=== PATIENT | male | born 1930 | race Caucasian/White ===

== ENCOUNTER 2017-04-18 16:16 | Emergency (ER) | payer MEDICARE ==
[~2017-04-18] VITALS: Ht 180.3 cm; Wt 77.0 kg
[~2017-04-18 16:16] MED LIST: ACID1TAB7 PO; AMLO2.5T PO; AMLO5TAB2 PO; AMOX250S6 PO; CEFD300C37 PO; DOXY100T PO; HYDR10TA4 PO; LISI-167 PO; MIRT15TA6 PO; OMEP40CA6 PO; SIME80TA14 PO; TRAM50TA2 PO
[2017-04-18] MEDS ORDERED: ONDANSETRON 2MG/ML, 2ML ONE (16:55)
[2017-04-18] MEDS ORDERED: MECLIZINE CHEWABLE 25 MG TAB ONE ×2 (16:55→17:10)
[2017-04-18] MEDS ORDERED: ONDANSETRON 2MG/ML, 2ML IVPush ONE (17:00)
[2017-04-18] MEDS ORDERED: SODIUM CHLORIDE 0.9% 1,000ML IVBOLUS ONE (17:00)
[2017-04-18] MEDS ORDERED: MECLIZINE CHEWABLE 25 MG TAB PO ONE (17:00)
[2017-04-18 17:32] LABS: HEMATOCRIT 37.3 % (39.2-51.8); HEMOGLOBIN 12.3 g/dL (13.7-18.0); WHITE BLOOD COUNT 10.1 x10^3/uL (3.4-10)
[2017-04-18 17:44] LABS: ASPARTATE AMINO TRANSFERASE 16 U/L (15-37); BLOOD UREA NITROGEN 9 mg/dL (7-18)
[2017-04-18 20:32] VITALS: BP 168/54
== END 2017-04-18 20:34 | disposition home or self-care (01) ==
LOC: ED 20:28
DX: H53.2 Diplopia (principal); R23.2 Flushing; K21.9 Gastro-esophageal reflux disease without esophagitis; I10 Essential (primary) hypertension; Z90.49 Acquired absence of other specified parts of digestive tract
CPT/HCPCS: 36415; 70450; 70551; 80053; 81003; 85025; 93005; 96361; 96374; 99285; J2405; J7030

== ENCOUNTER 2017-04-23 17:26 | Inpatient (IN) | payer MEDICARE ==
[~2017-04-23] VITALS: Ht 177.8 cm; Wt 69.7 kg
[2017-04-23] MEDS ORDERED: SODIUM CHLORIDE 0.9% 1,000 ML IV ONE (18:23)
[2017-04-23] MEDS ORDERED: MECLIZINE CHEWABLE 25 MG TAB PO ONE (18:30)
[2017-04-23] MEDS ORDERED: SODIUM CHLORIDE FLUSH 10ML SYR IVF ONE (18:30)
[2017-04-23] MEDS ORDERED: MECLIZINE CHEWABLE 25 MG TAB ONE (18:58)
[2017-04-23 19:04] LABS: HEMOGLOBIN 12.3 g/dL (13.7-18.0); WHITE BLOOD COUNT 10.7 x10^3/uL (3.4-10)
[2017-04-23 19:17] LABS: BLOOD UREA NITROGEN 8 mg/dL (7-18)
[2017-04-23 19:20] LABS: PATH.CAST-FLAG NOT PRESENT; SPERM-FLAG NOT PRESENT; SRC-FLAG NOT PRESENT; XTAL-FLAG NOT PRESENT; YLC-FLAG NOT PRESENT
[2017-04-23 19:28] LABS: IS PT STATUS REG ER OR PRE ER? YES
[2017-04-23] MEDS ORDERED: DOCUSATE 100 MG CAPSULE PO PRN (21:00)
[2017-04-23] MEDS ORDERED: ONDANSETRON 2MG/ML, 2ML IVPush PRN (21:00)
[2017-04-23] MEDS ORDERED: ENALAPRILAT 1.25 MG/ML, 2ML IVPush PRN (21:00)
[2017-04-23] MEDS ORDERED: LABETALOL 5MG/ML, 20ML IVPush PRN (21:00)
[2017-04-23] MEDS ORDERED: hydrOXyzine 10MG TABLET PO PRN (21:00)
[2017-04-23] MEDS ORDERED: ACETAMINOPHEN 325 MG TABLET PO PRN (21:00)
[2017-04-23] MEDS ORDERED: FAMOTIDINE 20 MG TABLET ONE (21:21)
[2017-04-23] MEDS: FAMOTIDINE 20 MG TABLET PO SCH (21:23)
[2017-04-23] MEDS ORDERED: AMLODIPINE 5 MG TABLET PO ONE (21:30)
[2017-04-23 23:04] VITALS: BP 166/70
[2017-04-23] MEDS: TEMAZEPAM 15 MG CAPSULE PO PRN (23:22)
[2017-04-24 02:27] VITALS: BP 128/68
[2017-04-24 06:12] LABS: HEMOGLOBIN 12.5 g/dL (13.7-18.0); WHITE BLOOD COUNT 8.4 x10^3/uL (3.4-10)
[2017-04-24 06:20] LABS: ASPARTATE AMINO TRANSFERASE 14 U/L (15-37); BLOOD UREA NITROGEN 8 mg/dL (7-18)
[2017-04-24 07:03] VITALS: BP 177/68
[2017-04-24 07:20] VITALS: BP 165/69
[2017-04-24] MEDS: FAMOTIDINE 20 MG TABLET PO SCH ×2 (09:22→21:03)
[2017-04-24] MEDS: AMLODIPINE 5 MG TABLET PO SCH (09:22)
[2017-04-24] MEDS ORDERED: MECLIZINE 12.5 MG TABLET PO PRN (10:30)
[2017-04-24 12:32] VITALS: BP 149/69
[2017-04-24 14:35] VITALS: BP 152/65
[2017-04-24 20:02] VITALS: BP 159/66
[2017-04-24] MEDS: TEMAZEPAM 15 MG CAPSULE PO PRN (21:03)
[2017-04-25 03:00] VITALS: BP 148/70
[2017-04-25 05:35] LABS: BLOOD UREA NITROGEN 9 mg/dL (7-18)
[2017-04-25 09:03] VITALS: BP 139/70
[2017-04-25] MEDS: AMLODIPINE 5 MG TABLET PO SCH (09:06)
[2017-04-25] MEDS: FAMOTIDINE 20 MG TABLET PO SCH (09:06)
[2017-04-25] MEDS ORDERED: MECL12.52 PO (11:08)
[2017-04-25] MEDS ORDERED: AMLO5TAB2 PO (11:08)
[2017-04-25 11:59] VITALS: BP 147/85
== END 2017-04-25 12:40 | disposition home or self-care (01) | DRG 641 ==
LOC: ED 20:36 → EDIP 21:00 → 4NOR 22:40 → DCLOUNGE 04-25 12:20
PROVIDERS: ADMIT Internal Medicine; ATTEND Internal Medicine
DX: E87.1 Hypo-osmolality and hyponatremia (principal); I10 Essential (primary) hypertension; J98.11 Atelectasis; R42 Dizziness and giddiness; H93.19 Tinnitus, unspecified ear; F32.9 Major depressive disorder, single episode, unspecified; G47.00 Insomnia, unspecified; F41.9 Anxiety disorder, unspecified; K21.9 Gastro-esophageal reflux disease without esophagitis; Z87.01 Personal history of pneumonia (recurrent); Z90.49 Acquired absence of other specified parts of digestive tract
CPT/HCPCS: 36415; 70450; 71010; 80048; 80053; 81001; 82040; 83735; 83930; 83935; 84100; 84300; 84443; 84484; 85025; 93005; 99285; J7030

== ENCOUNTER 2017-07-31 06:39 | Emergency (ER) | payer MEDICARE ==
[~2017-07-31] VITALS: Ht 177.8 cm; Wt 76.2 kg
[~2017-07-31 06:39] MED LIST changes: +MECL12.52 PO
[2017-07-31] MEDS ORDERED: SODIUM CHLORIDE 0.9% 1,000 ML IV ONE (07:13)
[2017-07-31] MEDS ORDERED: ONDANSETRON 2MG/ML, 2ML IVPush ONE (07:30)
[2017-07-31] MEDS ORDERED: SODIUM CHLORIDE FLUSH 10ML SYR IVF ONE (07:30)
[2017-07-31] MEDS ORDERED: SODIUM CHLORIDE 0.9% 1,000ML IVBOLUS ONE (07:30)
[2017-07-31 07:36] LABS: HEMATOCRIT 36.4 % (39.2-51.8); HEMOGLOBIN 12.2 g/dL (13.7-18.0)
[2017-07-31] MEDS ORDERED: ONDANSETRON 2MG/ML, 2ML ONE (07:51)
[2017-07-31 07:58] LABS: ASPARTATE AMINO TRANSFERASE 20 U/L (15-37); BLOOD UREA NITROGEN 10 mg/dL (7-18)
[2017-07-31 09:38] LABS: PATH.CAST-FLAG NOT PRESENT; SPERM-FLAG NOT PRESENT; SRC-FLAG NOT PRESENT; XTAL-FLAG NOT PRESENT; YLC-FLAG NOT PRESENT
[2017-07-31] MEDS ORDERED: OMNIPAQUE 350 MG/ML, 100ML BOTTLE ONE (12:11)
[2017-07-31 13:13] VITALS: BP 134/60
== END 2017-07-31 13:15 | disposition home or self-care (01) ==
LOC: ED 10:19
DX: R19.7 Diarrhea, unspecified (principal); R11.2 Nausea with vomiting, unspecified; R10.9 Unspecified abdominal pain; K21.9 Gastro-esophageal reflux disease without esophagitis; I10 Essential (primary) hypertension; Z90.49 Acquired absence of other specified parts of digestive tract
CPT/HCPCS: 36415; 74177; 80053; 81001; 83605; 85025; 87324; 89055; 96361; 96374; 99285; J2405; J7030; Q9967

== ENCOUNTER 2019-07-06 13:04 | Inpatient (IN) | payer MEDICARE ==
[~2019-07-06] VITALS: Ht 177.8 cm; Wt 75.1 kg
[~2019-07-06 13:04] MED LIST changes: +AMLO-150 PO; -AMLO2.5T PO; +AMLO2.5T5 PO; -AMLO5TAB2 PO; +LISINOPRIL; +LOPE2CAP PO; -MIRT15TA6 PO; +MIRT15TA94 PO; +OMEP40CA42 PO; -OMEP40CA6 PO
--- NOTE | 2019-07-06 13:15 | NUR ---
BIB [facility]. C/O CP ALL OVER CHEST WALL, NON RADIATING. NEW DX OF ANGINA. STATES PAIN FEELS DIFFERENT. GIVEN 324 ASA, 100 FENT, 4 ZOFRAN BY [facility]. PT CONNECTED TO MONITORING. CALL LIGHT IN REACH. MD AT BEDSIDE, AWAITING ORDERS AT THIS TIME.
[2019-07-06 13:26] LABS: BASOPHILS # (AUTO) 0.06 x10^3/uL (0-0.1); BASOPHILS % (AUTO) 1 % (0-1); EOSINOPHILS # (AUTO) 0.01 x10^3/uL (0-0.4); EOSINOPHILS % (AUTO) 0 % (1-7); LYMPHOCYTES # (AUTO) 1.66 x10^3/uL (1-3.4); LYMPHOCYTES % (AUTO) 14 % (22-44); MD NO; MEAN CORPUSCULAR HEMOGLOBIN 30.3 pg (27.5-34.5); MEAN CORPUSCULAR HGB CONC 32.8 g/dL (33.2-36.2); MEAN CORPUSCULAR VOLUME 92.4 fL (81-97); MEAN PLATELET VOLUME 7.3 fL (7.4-10.4); MONOCYTES # (AUTO) 1.42 x10^3/uL (0.2-0.8); MONOCYTES % (AUTO) 12 % (2-9); NEUTROPHILS # (AUTO) 8.53 x10^3/uL (1.8-6.8); NEUTROPHILS % (AUTO) 73 % (42-75); PLATELET COUNT 271 x10^3/uL (130-400); RED BLOOD COUNT 4.19 x10^6/uL (4.38-5.82); RED CELL DISTRIBUTION WIDTH 15.6 % (9.4-14.8)
[2019-07-06] MEDS ORDERED: ONDANSETRON 2MG/ML, 2ML ONE (13:32)
[2019-07-06] MEDS ORDERED: MORPHINE SULFATE 4 MG/ML, 1ML ONE ×2 (13:32→14:23)
[2019-07-06 13:35] LABS: ALANINE AMINOTRANSFERASE 18 U/L (12-78); ALBUMIN 3.6 g/dL (3.4-5.0); ANION GAP 9 mmol/L (5-15); CALCIUM 8.5 mg/dL (8.5-10.1); CHLORIDE 101 mmol/L (98-107)
[2019-07-06] MEDS: MORPHINE SULFATE 4 MG/ML, 1ML IVPush PRN ×2 (13:36→14:26)
[2019-07-06 13:39] LABS: ALKALINE PHOSPHATASE 62 U/L (45-117); BILIRUBIN,TOTAL 0.4 mg/dL (0.2-1.0); TROPONIN I < 0.015 ng/mL (0.000-0.045)
[2019-07-06 13:51] LABS: INTERNATIONAL NORMALIZED RATIO 1.02 (0.93-1.1); PROTHROMBIN TIME 10.7 Seconds (9.6-11.5)
--- NOTE | 2019-07-06 13:55 | NUR ---
LATE ENTRY: MD INFORMED OF PTS SEVERE CHEST PAIN AND REQUEST FOR PAIN CONTROL. ALSO INFORMED THAT REPORTED A MILD HEART ATTACK AT THE [facility] ON 06/19/19. MD AWARE AND AWAITING LABS. CHART IS UP FOR RECHECK.
--- NOTE | 2019-07-06 13:57 | NUR ---
ALL RESULTS ARE BACK AT THIS TIME. CHART UP FOR RECHECK.
--- NOTE | 2019-07-06 14:27 | NUR ---
PAIN MEDS ADMINISTERED PER NOV FOR PT 8/10 CHEST PAIN. NEW ORDER FOR CTA RECEIVED.
--- NOTE | 2019-07-06 15:14 | NUR ---
PT AT CT
--- NOTE | 2019-07-06 15:28 | NUR ---
PT RETURNED FROM CTA. PT RESTING COMFORTABLY ON GURNEY. LEIDYN.
[2019-07-06] MEDS ORDERED: OMNIPAQUE 350 MG/ML, 100ML BOTTLE ONE (15:33)
[2019-07-06] MEDS ORDERED: morphine SULFATE 10 MG/ML, 1ML IVPush PRN (16:30)
[2019-07-06] MEDS ORDERED: HEPARIN wt. based STROKE protocol MC PRN (16:30)
[2019-07-06] MEDS ORDERED: NITROGLYCERIN 0.4 MG BOTTLE (25 TABS) SL PRN ×2 (16:30)
[2019-07-06] MEDS ORDERED: ONDANSETRON 2MG/ML, 2ML IVPush PRN (16:30)
[2019-07-06] MEDS ORDERED: NITROGLYCERIN 0.4 MG/SPRAY SL PRN ×2 (16:30)
[2019-07-06] MEDS: ENALAPRILAT 1.25 MG/ML, 2ML IV SCH (16:30)
[2019-07-06] MEDS ORDERED: morphine SULFATE 10 MG/ML, 1ML IV PRN (16:30)
[2019-07-06] MEDS ORDERED: DO NOT GIVE XX PRN (16:30)
[2019-07-06] MEDS ORDERED: ASPIRIN 325 MG TABLET EC PO ONE (16:30)
--- NOTE | 2019-07-06 16:35 | NUR ---
REPORT GIVEN TO ARNULFO WOOD
[2019-07-06 17:16] LABS: CHOL/HDL RATIO 2.5; LDL/HDL RATIO 0.8 (0.5-3.0)
[2019-07-06] MEDS ORDERED: HEPARIN 25,000 UNITS/500ML PMX 500 ML IV PRN ×2 (18:00→21:30)
[2019-07-06] MEDS ORDERED: ISOS30TA8 PO (18:35)
[2019-07-06] MEDS ORDERED: GABA-826 PO (18:39)
[2019-07-06] MEDS ORDERED: PANT40TA5 PO (18:40)
[2019-07-06] MEDS ORDERED: DICL100G25 TP (18:44)
[2019-07-06] MEDS ORDERED: FLUD0.1T PO (18:45)
[2019-07-06] MEDS ORDERED: ACET500T76 PO (18:49)
[2019-07-06] MEDS ORDERED: ATOR10TA9 PO (18:50)
[2019-07-06] MEDS ORDERED: ASPI81TA45 PO (18:50)
[2019-07-06] MEDS ORDERED: MAGN400T26 PO (18:51)
[2019-07-06 19:46] VITALS: BP 161/69
[2019-07-06 20:22] VITALS: BP 169/80
[2019-07-06] MEDS: MELATONIN 3 MG TABLET PO SCH (20:44)
[2019-07-06] MEDS: SODIUM CHLORIDE FLUSH 10ML SYR IVF SCH (20:45)
[2019-07-06] MEDS ORDERED: ISOSORBIDE DINITRATE 10 MG TABLET PO SCH (21:00)
[2019-07-06] MEDS ORDERED: GABAPENTIN 100 MG CAPSULE PO PRN (21:00)
[2019-07-06] MEDS ORDERED: ATORVASTATIN 10 MG TABLET PO SCH (21:00)
[2019-07-06] MEDS ORDERED: ACETAMINOPHEN 500 MG TABLET PO PRN (21:00)
[2019-07-06] MEDS ORDERED: DICLOFENAC SODIUM 2 GM HOMETP PRN (21:00)
[2019-07-06] MEDS ORDERED: ATORVASTATIN 40 MG TABLET PO SCH (21:00)
[2019-07-06] MEDS ORDERED: HEPARIN 5,000 UNITS/ML, 1ML IV PRN (21:30)
[2019-07-06] MEDS ORDERED: HEPARIN 5,000 UNITS/ML, 1ML IV ONE (21:30)
[2019-07-07] MEDS ORDERED: ENALAPRILAT 1.25 MG/ML, 1ML ONE (00:21)
[2019-07-07] MEDS: ENALAPRILAT 1.25 MG/ML, 2ML IV SCH (00:26)
[2019-07-07 01:02] VITALS: BP 147/75
[2019-07-07] MEDS ORDERED: ASPIRIN 325 MG TABLET PO SCH (06:00)
[2019-07-07] MEDS ORDERED: ASPIRIN 325 MG TABLET EC PO SCH (06:00)
[2019-07-07] MEDS ORDERED: ENALAPRILAT 1.25 MG/ML, 2ML IV PRN (07:00)
[2019-07-07 08:02] VITALS: BP 177/68
[2019-07-07] MEDS: SODIUM CHLORIDE FLUSH 10ML SYR IVF SCH ×2 (09:30→19:59)
[2019-07-07] MEDS ORDERED: SODIUM CHLORIDE 0.9% 1,000 ML IV SCH (09:30)
[2019-07-07] MEDS ORDERED: FENTANYL PF 100 MCG/2ML ONE (09:47)
[2019-07-07] MEDS ORDERED: MIDAZOLAM 1 MG/ML, 5ML ONE (09:47)
[2019-07-07] MEDS ORDERED: NITROGLYCERIN 5 MG/ML, 10ML ONE (09:47)
[2019-07-07] MEDS ORDERED: VERAPAMIL 2.5 MG/ML, 2ML ONE (09:47)
[2019-07-07] MEDS ORDERED: BIVALIRUDIN 250 MG ONE (09:47)
[2019-07-07] MEDS ORDERED: LIDOCAINE 1%, 20ML ONE (09:48)
[2019-07-07] MEDS ORDERED: hydrALAzine 20 MG/ML, 1ML ONE ×2 (10:42→11:15)
[2019-07-07] MEDS ORDERED: TICAGRELOR 90 MG TABLET ONE (11:15)
[2019-07-07] MEDS ORDERED: hydrALAzine 20 MG/ML, 1ML IV PRN (12:00)
[2019-07-07 12:31] VITALS: BP 128/70
[2019-07-07] MEDS: ASPIRIN 81 MG TABLET EC PO SCH (13:06)
[2019-07-07] MEDS: ISOSORBIDE MONONITRATE ER 30 MG TABLET PO SCH (13:07)
[2019-07-07] MEDS: FLUDROCORTISONE 0.1 MG TABLET PO SCH (13:07)
[2019-07-07] MEDS: MAGNESIUM OXIDE 400 MG TABLET PO SCH (13:07)
[2019-07-07] MEDS: PANTOPROZOLE 40MG TABLET PO SCH (13:07)
[2019-07-07] MEDS: CARVEDILOL 3.125 MG TABLET PO SCH (18:29)
[2019-07-07 19:25] VITALS: BP 127/65
[2019-07-07] MEDS: MELATONIN 3 MG TABLET PO SCH (19:59)
[2019-07-07] MEDS ORDERED: ATORVASTATIN 10 MG TABLET PO SCH (21:00)
[2019-07-08 01:58] VITALS: BP 132/68
[2019-07-08 04:50] LABS: BASOPHILS # (AUTO) 0.04 x10^3/uL (0-0.1); BASOPHILS % (AUTO) 0 % (0-1); EOSINOPHILS % (AUTO) 0 % (1-7); LYMPHOCYTES # (AUTO) 0.99 x10^3/uL (1-3.4); LYMPHOCYTES % (AUTO) 8 % (22-44); MD NO; MEAN CORPUSCULAR HEMOGLOBIN 30.3 pg (27.5-34.5); MEAN CORPUSCULAR HGB CONC 32.7 g/dL (33.2-36.2); MEAN CORPUSCULAR VOLUME 92.6 fL (81-97); MEAN PLATELET VOLUME 7.5 fL (7.4-10.4); MONOCYTES # (AUTO) 1.26 x10^3/uL (0.2-0.8); MONOCYTES % (AUTO) 10 % (2-9); NEUTROPHILS # (AUTO) 10.01 x10^3/uL (1.8-6.8); NEUTROPHILS % (AUTO) 81 % (42-75); PLATELET COUNT 240 x10^3/uL (130-400); RED BLOOD COUNT 4.01 x10^6/uL (4.38-5.82); RED CELL DISTRIBUTION WIDTH 15.5 % (9.4-14.8)
[2019-07-08 05:06] LABS: ANION GAP 8 mmol/L (5-15); CALCIUM 8.3 mg/dL (8.5-10.1); CHLORIDE 97 mmol/L (98-107); CREATININE 1.11 mg/dL (0.7-1.3)
[2019-07-08] MEDS: CARVEDILOL 3.125 MG TABLET PO SCH ×2 (06:00→18:28)
[2019-07-08 07:52] VITALS: BP 164/75
[2019-07-08] MEDS: MAGNESIUM OXIDE 400 MG TABLET PO SCH (09:00)
[2019-07-08] MEDS: ASPIRIN 81 MG TABLET EC PO SCH (09:01)
[2019-07-08] MEDS: TICAGRELOR 90 MG TABLET PO SCH ×2 (09:01→20:18)
[2019-07-08] MEDS: ISOSORBIDE MONONITRATE ER 30 MG TABLET PO SCH (09:01)
[2019-07-08] MEDS: PANTOPROZOLE 40MG TABLET PO SCH (09:01)
[2019-07-08] MEDS: FLUDROCORTISONE 0.1 MG TABLET PO SCH (09:01)
[2019-07-08] MEDS: SODIUM CHLORIDE FLUSH 10ML SYR IVF SCH ×2 (09:02→21:00)
[2019-07-08] MEDS ORDERED: SODIUM CHLORIDE 0.9%, 500ML IVBOLUS ONE (12:00)
[2019-07-08 13:37] VITALS: BP 147/71
[2019-07-08 20:10] VITALS: BP 160/70
[2019-07-08] MEDS: MELATONIN 3 MG TABLET PO SCH (20:19)
[2019-07-08] MEDS ORDERED: ATORVASTATIN 10 MG TABLET PO SCH (21:00)
[2019-07-09 02:39] VITALS: BP 148/70
[2019-07-09 05:30] LABS: BASOPHILS # (AUTO) 0.03 x10^3/uL (0-0.1); BASOPHILS % (AUTO) 0 % (0-1); EOSINOPHILS # (AUTO) 0.04 x10^3/uL (0-0.4); EOSINOPHILS % (AUTO) 0 % (1-7); LYMPHOCYTES # (AUTO) 0.81 x10^3/uL (1-3.4); LYMPHOCYTES % (AUTO) 8 % (22-44); MD NO; MEAN CORPUSCULAR HEMOGLOBIN 30.3 pg (27.5-34.5); MEAN CORPUSCULAR HGB CONC 32.9 g/dL (33.2-36.2); MEAN PLATELET VOLUME 7.5 fL (7.4-10.4); MONOCYTES # (AUTO) 1.02 x10^3/uL (0.2-0.8); MONOCYTES % (AUTO) 10 % (2-9); NEUTROPHILS # (AUTO) 8.24 x10^3/uL (1.8-6.8); NEUTROPHILS % (AUTO) 81 % (42-75); PLATELET COUNT 213 x10^3/uL (130-400); RED BLOOD COUNT 4.13 x10^6/uL (4.38-5.82); RED CELL DISTRIBUTION WIDTH 15.3 % (9.4-14.8)
[2019-07-09 05:54] LABS: CHLORIDE 99 mmol/L (98-107)
[2019-07-09 05:58] LABS: ANION GAP 8 mmol/L (5-15); CALCIUM 8.2 mg/dL (8.5-10.1); CREATININE 1.17 mg/dL (0.7-1.3)
[2019-07-09] MEDS: CARVEDILOL 3.125 MG TABLET PO SCH (06:12)
[2019-07-09 06:41] VITALS: BP 169/72
[2019-07-09] MEDS: TICAGRELOR 90 MG TABLET PO SCH (09:52)
[2019-07-09] MEDS: MAGNESIUM OXIDE 400 MG TABLET PO SCH (09:52)
[2019-07-09] MEDS: ASPIRIN 81 MG TABLET EC PO SCH (09:52)
[2019-07-09] MEDS: FLUDROCORTISONE 0.1 MG TABLET PO SCH (09:52)
[2019-07-09] MEDS: PANTOPROZOLE 40MG TABLET PO SCH (09:53)
[2019-07-09] MEDS: ISOSORBIDE MONONITRATE ER 30 MG TABLET PO SCH (09:53)
[2019-07-09] MEDS: SODIUM CHLORIDE FLUSH 10ML SYR IVF SCH (09:54)
[2019-07-09] MEDS ORDERED: CARV3.1212 PO (10:36)
[2019-07-09] MEDS ORDERED: TICA90TA PO (10:36)
[2019-07-09] MEDS ORDERED: ATOR10TA9 PO (10:36)
== END 2019-07-09 12:52 | disposition home health service (06) | DRG 246 ==
LOC: ED 13:11 → EDIP 16:54 → 5SO 17:26 → DCLOUNGE 07-09 12:34
PROVIDERS: ADMIT Hospitalist; ATTEND Internal Medicine
PROC: 027034Z Dilation of Coronary Artery, One Artery with Drug-eluting Intraluminal Device, Percutaneous Approach (ICD-10-PCS; principal; 2019-07-07)
PROC: 4A023N7 Measurement of Cardiac Sampling and Pressure, Left Heart, Percutaneous Approach (ICD-10-PCS; 2019-07-07)
PROC: B211YZZ Fluoroscopy of Multiple Coronary Arteries using Other Contrast (ICD-10-PCS; 2019-07-07)
DX: I21.4 Non-ST elevation (NSTEMI) myocardial infarction (principal); I50.33 Acute on chronic diastolic (congestive) heart failure; E87.1 Hypo-osmolality and hyponatremia; I25.110 Atherosclerotic heart disease of native coronary artery with unstable angina pectoris; I70.1 Atherosclerosis of renal artery; F41.1 Generalized anxiety disorder; K21.9 Gastro-esophageal reflux disease without esophagitis; I44.0 Atrioventricular block, first degree; I25.2 Old myocardial infarction; E78.5 Hyperlipidemia, unspecified; G89.29 Other chronic pain; M16.12 Unilateral primary osteoarthritis, left hip; Z66 Do not resuscitate; N28.9 Disorder of kidney and ureter, unspecified; Z87.01 Personal history of pneumonia (recurrent); Z90.49 Acquired absence of other specified parts of digestive tract; Z88.6 Allergy status to analgesic agent; Z79.899 Other long term (current) drug therapy; I11.0 Hypertensive heart disease with heart failure
CPT/HCPCS: 36415; 71045; 71275; 74175; 80048; 80053; 80061; 83735; 83880; 84100; 84443; 84484; 85025; 85520; 85610; 85730; 93005; 93306; 93458; 93970; 96374; 96376; 99156; 99157; C1760; C1769; C1894; C9600; G0378; J0583; J1644; J2250; J3010; Q9967; C1725; C1874; C1887; J0360; J2270; J7030; J7040; J7512

== ENCOUNTER 2019-07-09 14:35 | Inpatient (IN) | payer MEDICARE ==
[~2019-07-09] VITALS: Ht 177.8 cm; Wt 82.5 kg
[~2019-07-09 14:35] MED LIST changes: +ACET500T76 PO; +ASPI81TA45 PO; +ATOR10TA9 PO; +CARV3.1212 PO; +DICL100G25 TP; +FLUD0.1T PO; +GABA-826 PO; +ISOS30TA8 PO; +MAGN400T26 PO; +PANT40TA5 PO; +TICA90TA PO
--- NOTE | 2019-07-09 14:50 | NUR ---
Pt pushed in wheelchair by nuclear medical technologist from triage to room. NADN. No obvious defecit observed.
--- NOTE | 2019-07-09 15:19 | NUR ---
Pt resting on gurney in room with c/o posterior neck pain, right elbow pain, and right him pain s/p GLF at home today after being d/c from hospital today from an angioplasty procedure. Pt states, "I went to put a bag of groceries away and my walker spun out on me and my head spun and I couldn't grab on to anything and I fell on my right side." C-collar applied to pt's neck and pt resting supine. Pt connected to fish seiner, NIBP cuff, and continous pulse ox monitor. Bedrails up x 2 and call light within reach. Pt 's spouse at bedside. Warm blanket provided for comfort measures. NADN. No other needs expressed. Lab at pt's bedside.
--- NOTE | 2019-07-09 15:35 | NUR ---
Pt transported on [facility] to CT. CLARKE.
[2019-07-09 15:37] LABS: BASOPHILS # (AUTO) 0.02 x10^3/uL (0-0.1); BASOPHILS % (AUTO) 0 % (0-1); EOSINOPHILS # (AUTO) 0.01 x10^3/uL (0-0.4); EOSINOPHILS % (AUTO) 0 % (1-7); LYMPHOCYTES # (AUTO) 0.59 x10^3/uL (1-3.4); LYMPHOCYTES % (AUTO) 5 % (22-44); MD NO; MEAN CORPUSCULAR HEMOGLOBIN 30.1 pg (27.5-34.5); MEAN CORPUSCULAR HGB CONC 33.2 g/dL (33.2-36.2); MEAN CORPUSCULAR VOLUME 90.9 fL (81-97); MEAN PLATELET VOLUME 7.4 fL (7.4-10.4); MONOCYTES # (AUTO) 0.88 x10^3/uL (0.2-0.8); MONOCYTES % (AUTO) 8 % (2-9); NEUTROPHILS # (AUTO) 9.89 x10^3/uL (1.8-6.8); NEUTROPHILS % (AUTO) 87 % (42-75); PLATELET COUNT 241 x10^3/uL (130-400); RED BLOOD COUNT 4.07 x10^6/uL (4.38-5.82); RED CELL DISTRIBUTION WIDTH 15.7 % (9.4-14.8)
[2019-07-09 15:45] LABS: ALANINE AMINOTRANSFERASE 32 U/L (12-78); ALBUMIN 3.3 g/dL (3.4-5.0); ANION GAP 10 mmol/L (5-15); CHLORIDE 99 mmol/L (98-107)
[2019-07-09 15:50] LABS: ALKALINE PHOSPHATASE 57 U/L (45-117); BILIRUBIN,TOTAL 0.7 mg/dL (0.2-1.0); CREATININE 1.28 mg/dL (0.7-1.3); TOTAL PROTEIN 6.5 g/dL (6.4-8.2)
[2019-07-09] MEDS ORDERED: HALOPERIDOL 5 MG/ML ONE ×2 (16:12→18:50)
--- NOTE | 2019-07-09 16:15 | NUR ---
ED RN in room. Pt aggrevated stating, "I want to go home." Pt altered to place and situation. Pt states, "I am at a neighbors house." Pt telling , "take me home." EDMD, ED staff, and security at bedside. Provided medication per EDMD verbal order per consult with who is pt's medical POA. Sitter to bedside. Patient's at [facility] attempting to comfort spouse.
[2019-07-09] MEDS ORDERED: HALOPERIDOL 5 MG/ML IM ONE (16:30)
--- NOTE | 2019-07-09 16:33 | NUR ---
Pt continues to be aggitated and attempting to leave gurney. Pt arguing with staff and stating, "you sick people. I am fine. I want to go home. Let me go." Pt's who is patient's medical POA in room. ED staff and security at bedside.
[2019-07-09] MEDS ORDERED: DIPHENHYDRAMINE 50 MG/ML, 1ML ONE (16:36)
--- NOTE | 2019-07-09 16:41 | NUR ---
Provided medication per EMAR. Pt resting back on gurney with eyes closed. Pt has unlabored respirations with even chest rise and fall. Pt reconnected to diagnostic cardiac sonographer and NIBP cuff. Bedrails up x 2. Sitter standing at bedside. EDRN standing at bedside. Pt's spouse went to coffee cart.
--- NOTE | 2019-07-09 16:48 | NUR ---
Pt sedated and ready for CT per EMAR and EDMD order. CT notified. CT on their way to come transport pt from ED to CT. Pt resting on gurney with eyes closed with unlabored respirations and even chest rise and fall. Bedrails up x 2. Sitter and EDRN sitting near bedside.
[2019-07-09] MEDS ORDERED: LORazepam 2 MG/ML, 1ML ONE (16:56)
[2019-07-09] MEDS ORDERED: DIPHENHYDRAMINE 50 MG/ML, 1ML IM ONE (17:00)
[2019-07-09] MEDS ORDERED: HALOPERIDOL 5 MG/ML IM PRN ×2 (17:00→19:00)
--- NOTE | 2019-07-09 17:13 | NUR ---
LATE NOTE ENTRY DUE TO PT CARE. EDRN accomponied pt to CT. Pt aggitated and attempting get off gurney at CT. Provided medication per EMAR and EDMD verbal order. Pt resting with eyes closed. CT performed. Pt transported back to ED room and reconnected to playground monitor, NIBP cuff, and continous pulse ox monitor. Bed rails up x 2, sitter in room and EDRN in room. Pt's spouse returned and is at bedside. Pt awakes and states, "I want to shoot you. You people are nuts." Pt attempting to remove monitors. Warm blanets provided. Pt resting on gurney with unlabored respirations and even chest rise and fall at this time.
--- NOTE | 2019-07-09 17:32 | NUR ---
Pt awaken and aggitated. Pt states he wants to pee. Pt's stepped out of room. EDRN attempted to assit pt with urinal. Pt agitated. EDMD aware.
--- NOTE | 2019-07-09 17:39 | NUR ---
Pt did not urinate. Pt's at bedside. EDMD at bedside discussing plan of care with pt's spouse.
--- NOTE | 2019-07-09 17:46 | NUR ---
Janiya, pt's spouse and medical POA, discussed plan of care with EDMD and gave verbal understanding and consent. Janiya left contact phone number [phone]. Umang left to go home for the evening. Pt continues to attempt to get out of the gurney. Pt aggitated stating, "you people sick." Pt not responding to verbal redirection from RN to remain on gurney.
[2019-07-09] MEDS ORDERED: LORazepam 2 MG/ML, 1ML IM ONE (18:00)
[2019-07-09] MEDS ORDERED: POLYETHYLENE GLYCOL 17 GM PACKET PO PRN (19:00)
[2019-07-09] MEDS ORDERED: BISACODYL 10 MG SUPP PR PRN (19:00)
[2019-07-09] MEDS ORDERED: HALOPERIDOL 5 MG/ML IV ONE (19:00)
[2019-07-09] MEDS: CARVEDILOL 3.125 MG TABLET PO SCH (19:00)
[2019-07-09] MEDS ORDERED: ONDANSETRON ODT 4 MG PO PRN (19:00)
--- NOTE | 2019-07-09 19:35 | NUR ---
LATE NOTE ENTRY DUE TO PT CARE. PIV obtained, slater placed. Medications provided per EDMD orders. Sitter near bedside with pt.
[2019-07-09 19:36] LABS: MICROSCOPIC AUTO
--- NOTE | 2019-07-09 19:36 | NUR ---
Provided report to NINA Garay. all questions answered. Pt ready to transfer to floor from ED.
--- NOTE | 2019-07-09 19:39 | NUR ---
pt to xray
[2019-07-09 19:43] LABS: CULTURE INDICATED? NO
[2019-07-09 20:49] VITALS: BP 189/86
[2019-07-09] MEDS: ATORVASTATIN 40 MG TABLET PO SCH (21:00)
[2019-07-09] MEDS: TICAGRELOR 90 MG TABLET PO SCH (21:00)
[2019-07-09] MEDS: SODIUM CHLORIDE 0.9% 1,000 ML IV SCH (21:19)
[2019-07-09] MEDS ORDERED: hydrALAzine 20 MG/ML, 1ML IV PRN (21:30)
[2019-07-09 23:38] VITALS: BP 181/69
[2019-07-09] MEDS: hydrALAzine 20 MG/ML, 1ML IV PRN (23:41)
[2019-07-10] VITALS (8 sets, daily range): BP systolic 118–168; BP diastolic 66–81
[2019-07-10 03:17] LABS: MEAN CORPUSCULAR HEMOGLOBIN 30.2 pg (27.5-34.5); MEAN CORPUSCULAR HGB CONC 32.7 g/dL (33.2-36.2); MEAN CORPUSCULAR VOLUME 92.2 fL (81-97); MEAN PLATELET VOLUME 7.7 fL (7.4-10.4); PLATELET COUNT 224 x10^3/uL (130-400); RED CELL DISTRIBUTION WIDTH 15.8 % (9.4-14.8)
[2019-07-10 03:29] LABS: ALBUMIN 3.4 g/dL (3.4-5.0); ANION GAP 9 mmol/L (5-15); CALCIUM 8.1 mg/dL (8.5-10.1); CHLORIDE 104 mmol/L (98-107)
[2019-07-10 03:35] LABS: ALANINE AMINOTRANSFERASE 33 U/L (12-78); ALKALINE PHOSPHATASE 59 U/L (45-117); BILIRUBIN,TOTAL 0.8 mg/dL (0.2-1.0); CREATININE 1.15 mg/dL (0.7-1.3); TOTAL PROTEIN 6.7 g/dL (6.4-8.2)
[2019-07-10 03:41] LABS: BASOPHILS # (AUTO) 0.04 x10^3/uL (0-0.1); BASOPHILS % (AUTO) 0 % (0-1); EOSINOPHILS # (AUTO) 0.17 x10^3/uL (0-0.4); EOSINOPHILS % (AUTO) 1 % (1-7); LYMPHOCYTES # (AUTO) 1.63 x10^3/uL (1-3.4); LYMPHOCYTES % (AUTO) 12 % (22-44); MD SCAN; MONOCYTES # (AUTO) 1.64 x10^3/uL (0.2-0.8); MONOCYTES % (AUTO) 12 % (2-9); NEUTROPHILS # (AUTO) 9.86 x10^3/uL (1.8-6.8); NEUTROPHILS % (AUTO) 74 % (42-75)
[2019-07-10] MEDS: CARVEDILOL 3.125 MG TABLET PO SCH ×2 (05:25→18:01)
[2019-07-10] MEDS ORDERED: POTASSIUM CHLORIDE 20 MEQ TAB.ER.PRT PO ONE ×2 (06:30→12:25)
[2019-07-10] MEDS ORDERED: MAGNESIUM OXIDE 400 MG TABLET PO SCH (09:00)
[2019-07-10] MEDS: SENNA/DOCUSATE TABLET PO SCH (09:09)
[2019-07-10] MEDS: ASPIRIN 81 MG TABLET EC PO SCH (09:09)
[2019-07-10] MEDS: FLUDROCORTISONE 0.1 MG TABLET PO SCH (09:10)
[2019-07-10] MEDS: PANTOPROZOLE 40MG TABLET PO SCH (09:10)
[2019-07-10] MEDS: ISOSORBIDE MONONITRATE ER 30 MG TABLET PO SCH (09:11)
[2019-07-10] MEDS: TICAGRELOR 90 MG TABLET PO SCH ×2 (09:11→22:18)
[2019-07-10] MEDS ORDERED: POTASSIUM CHLORIDE 20 MEQ TAB.ER.PRT ONE (16:45)
[2019-07-10] MEDS ORDERED: ASPIRIN 300 MG SUPP PR ONE (17:00)
[2019-07-10] MEDS: DOXYCYCLINE 100MG TABLET PO SCH ×2 (17:02→22:17)
[2019-07-10] MEDS: SODIUM CHLORIDE 0.9% 1,000 ML IV SCH (17:02)
[2019-07-10] MEDS: AMPICILLIN/SULBACTAM 3 GM in SODIUM CHLORIDE 0.9% 100 ML IV SCH ×2 (17:02→22:18)
[2019-07-10] MEDS ORDERED: MELATONIN 5 MG TABLET ONE (22:13)
[2019-07-10] MEDS: MELATONIN 5 MG TABLET PO PRN (22:17)
[2019-07-10] MEDS: ATORVASTATIN 40 MG TABLET PO SCH (22:17)
[2019-07-11 00:46] VITALS: BP 152/73
[2019-07-11] MEDS: AMPICILLIN/SULBACTAM 3 GM in SODIUM CHLORIDE 0.9% 100 ML IV SCH ×4 (04:00→22:59)
[2019-07-11] MEDS: CARVEDILOL 3.125 MG TABLET PO SCH ×2 (05:56→17:20)
[2019-07-11 06:41] VITALS: BP 132/58
[2019-07-11 07:45] LABS: BASOPHILS # (AUTO) 0.03 x10^3/uL (0-0.1); BASOPHILS % (AUTO) 0 % (0-1); EOSINOPHILS # (AUTO) 0.12 x10^3/uL (0-0.4); EOSINOPHILS % (AUTO) 1 % (1-7); LYMPHOCYTES # (AUTO) 0.93 x10^3/uL (1-3.4); LYMPHOCYTES % (AUTO) 8 % (22-44); MD NO; MEAN CORPUSCULAR HEMOGLOBIN 30.1 pg (27.5-34.5); MEAN CORPUSCULAR HGB CONC 32.6 g/dL (33.2-36.2); MEAN CORPUSCULAR VOLUME 92.3 fL (81-97); MEAN PLATELET VOLUME 7.8 fL (7.4-10.4); MONOCYTES # (AUTO) 0.99 x10^3/uL (0.2-0.8); MONOCYTES % (AUTO) 9 % (2-9); NEUTROPHILS # (AUTO) 9.15 x10^3/uL (1.8-6.8); NEUTROPHILS % (AUTO) 82 % (42-75); PLATELET COUNT 209 x10^3/uL (130-400); RED BLOOD COUNT 4.15 x10^6/uL (4.38-5.82); RED CELL DISTRIBUTION WIDTH 15.9 % (9.4-14.8)
[2019-07-11 07:56] LABS: ALANINE AMINOTRANSFERASE 24 U/L (12-78); ANION GAP 8 mmol/L (5-15); CALCIUM 7.9 mg/dL (8.5-10.1); CHLORIDE 108 mmol/L (98-107); CREATININE 1.24 mg/dL (0.7-1.3)
[2019-07-11 07:58] LABS: ALKALINE PHOSPHATASE 64 U/L (45-117); TOTAL PROTEIN 6.2 g/dL (6.4-8.2)
[2019-07-11] MEDS: PANTOPROZOLE 40MG TABLET PO SCH (09:09)
[2019-07-11] MEDS: SENNA/DOCUSATE TABLET PO SCH (09:09)
[2019-07-11] MEDS: ASPIRIN 81 MG TABLET EC PO SCH (09:10)
[2019-07-11] MEDS: DOXYCYCLINE 100MG TABLET PO SCH ×2 (09:10→20:07)
[2019-07-11] MEDS: FLUDROCORTISONE 0.1 MG TABLET PO SCH (09:10)
[2019-07-11] MEDS: ISOSORBIDE MONONITRATE ER 30 MG TABLET PO SCH (09:10)
[2019-07-11] MEDS: TICAGRELOR 90 MG TABLET PO SCH ×2 (09:10→20:07)
[2019-07-11] MEDS: SODIUM CHLORIDE 0.9% 1,000 ML IV SCH (10:35)
[2019-07-11 12:12] VITALS: BP 135/64
[2019-07-11 17:21] VITALS: BP 171/71
[2019-07-11] MEDS: ATORVASTATIN 40 MG TABLET PO SCH (20:07)
[2019-07-11] MEDS: MELATONIN 5 MG TABLET PO PRN (20:07)
[2019-07-11 20:15] VITALS: BP 162/68
[2019-07-12] VITALS (9 sets, daily range): BP systolic 123–189; BP diastolic 62–86
[2019-07-12] MEDS: hydrALAzine 20 MG/ML, 1ML IV PRN (01:18)
[2019-07-12] MEDS: AMPICILLIN/SULBACTAM 3 GM in SODIUM CHLORIDE 0.9% 100 ML IV SCH ×3 (05:32→17:09)
[2019-07-12] MEDS: CARVEDILOL 3.125 MG TABLET PO SCH ×2 (05:32→17:09)
[2019-07-12 06:53] LABS: MEAN CORPUSCULAR HEMOGLOBIN 30.6 pg (27.5-34.5); MEAN CORPUSCULAR HGB CONC 32.7 g/dL (33.2-36.2); MEAN CORPUSCULAR VOLUME 93.7 fL (81-97); MEAN PLATELET VOLUME 7.8 fL (7.4-10.4); PLATELET COUNT 198 x10^3/uL (130-400); RED BLOOD COUNT 3.98 x10^6/uL (4.38-5.82); RED CELL DISTRIBUTION WIDTH 15.8 % (9.4-14.8)
[2019-07-12 07:04] LABS: ALANINE AMINOTRANSFERASE 24 U/L (12-78); ANION GAP 10 mmol/L (5-15); CALCIUM 7.9 mg/dL (8.5-10.1); CHLORIDE 103 mmol/L (98-107)
[2019-07-12 07:06] LABS: ALKALINE PHOSPHATASE 63 U/L (45-117); BILIRUBIN,TOTAL 1.4 mg/dL (0.2-1.0); CREATININE 0.96 mg/dL (0.7-1.3); TOTAL PROTEIN 6.3 g/dL (6.4-8.2)
[2019-07-12 07:26] LABS: BASOPHILS # (AUTO) 0.09 x10^3/uL (0-0.1); BASOPHILS % (AUTO) 1 % (0-1); EOSINOPHILS # (AUTO) 0.17 x10^3/uL (0-0.4); EOSINOPHILS % (AUTO) 1 % (1-7); LYMPHOCYTES # (AUTO) 0.88 x10^3/uL (1-3.4); LYMPHOCYTES % (AUTO) 7 % (22-44); MD SCAN; MONOCYTES # (AUTO) 1.65 x10^3/uL (0.2-0.8); MONOCYTES % (AUTO) 12 % (2-9); NEUTROPHILS % (AUTO) 79 % (42-75)
[2019-07-12] MEDS ORDERED: POTASSIUM CHLORIDE 20 MEQ TAB.ER.PRT PO ONE ×2 (07:30→11:30)
[2019-07-12] MEDS: TICAGRELOR 90 MG TABLET PO SCH ×2 (09:26→22:14)
[2019-07-12] MEDS: ASPIRIN 81 MG TABLET EC PO SCH (09:27)
[2019-07-12] MEDS: ISOSORBIDE MONONITRATE ER 30 MG TABLET PO SCH (09:27)
[2019-07-12] MEDS: FLUDROCORTISONE 0.1 MG TABLET PO SCH (09:27)
[2019-07-12] MEDS: PANTOPROZOLE 40MG TABLET PO SCH (09:30)
[2019-07-12] MEDS: SENNA/DOCUSATE TABLET PO SCH (09:30)
[2019-07-12] MEDS: DOXYCYCLINE 100MG TABLET PO SCH ×2 (09:30→22:14)
--- NOTE | 2019-07-12 13:37 | NUR ---
CHOPPED/ THINS -No straws -Up right at 90 degrees -Float meds Addendum: 07/12/19 at [address] Amended: Links added.
[2019-07-12] MEDS: SODIUM CHLORIDE 0.9% 1,000 ML IV SCH (17:09)
[2019-07-12] MEDS: ATORVASTATIN 40 MG TABLET PO SCH (22:14)
[2019-07-13] MEDS: AMPICILLIN/SULBACTAM 3 GM in SODIUM CHLORIDE 0.9% 100 ML IV SCH ×5 (00:05→22:38)
[2019-07-13 01:20] VITALS: BP 126/64
[2019-07-13 05:16] LABS: CHLORIDE 104 mmol/L (98-107)
[2019-07-13] MEDS: CARVEDILOL 3.125 MG TABLET PO SCH ×2 (05:17→18:17)
[2019-07-13 05:21] LABS: ALBUMIN 2.6 g/dL (3.4-5.0); ANION GAP 10 mmol/L (5-15); BASOPHILS # (AUTO) 0.02 x10^3/uL (0-0.1); BASOPHILS % (AUTO) 0 % (0-1); CALCIUM 7.7 mg/dL (8.5-10.1); CREATININE 1.04 mg/dL (0.7-1.3); EOSINOPHILS # (AUTO) 0.13 x10^3/uL (0-0.4); EOSINOPHILS % (AUTO) 1 % (1-7); LYMPHOCYTES # (AUTO) 1.14 x10^3/uL (1-3.4); LYMPHOCYTES % (AUTO) 12 % (22-44); MD NO; MEAN CORPUSCULAR HEMOGLOBIN 30.2 pg (27.5-34.5); MEAN CORPUSCULAR HGB CONC 32.9 g/dL (33.2-36.2); MEAN CORPUSCULAR VOLUME 91.9 fL (81-97); MEAN PLATELET VOLUME 7.7 fL (7.4-10.4); MONOCYTES # (AUTO) 1.34 x10^3/uL (0.2-0.8); MONOCYTES % (AUTO) 14 % (2-9); NEUTROPHILS # (AUTO) 6.84 x10^3/uL (1.8-6.8); NEUTROPHILS % (AUTO) 72 % (42-75); PLATELET COUNT 179 x10^3/uL (130-400); RED BLOOD COUNT 3.55 x10^6/uL (4.38-5.82)
[2019-07-13] MEDS ORDERED: POTASSIUM CHLORIDE 20 MEQ TAB.ER.PRT PO ONE ×2 (06:00→11:00)
[2019-07-13 09:22] VITALS: BP 147/73
[2019-07-13] MEDS: POLYETHYLENE GLYCOL 17 GM PACKET PO SCH (09:36)
[2019-07-13] MEDS: SENNA/DOCUSATE TABLET PO SCH (09:37)
[2019-07-13] MEDS: FLUDROCORTISONE 0.1 MG TABLET PO SCH (09:37)
[2019-07-13] MEDS: ASPIRIN 81 MG TABLET EC PO SCH (09:37)
[2019-07-13] MEDS: PANTOPROZOLE 40MG TABLET PO SCH (09:37)
[2019-07-13] MEDS: DOXYCYCLINE 100MG TABLET PO SCH ×2 (09:37→20:49)
[2019-07-13] MEDS: TICAGRELOR 90 MG TABLET PO SCH ×2 (09:37→20:50)
[2019-07-13] MEDS: SODIUM CHLORIDE 0.9% 1,000 ML IV SCH (09:38)
[2019-07-13] MEDS: ISOSORBIDE MONONITRATE ER 30 MG TABLET PO SCH (09:49)
[2019-07-13 10:51] VITALS: BP 132/65
[2019-07-13 13:30] VITALS: BP 121/86
[2019-07-13] MEDS ORDERED: FLU VACC QS2019-20 36MOS UP/PF 0.5 ML IM-VACC ONE (14:00)
[2019-07-13 19:27] VITALS: BP 156/66
[2019-07-13] MEDS: MELATONIN 5 MG TABLET PO PRN (20:50)
[2019-07-13] MEDS: ATORVASTATIN 40 MG TABLET PO SCH (20:50)
[2019-07-14] MEDS ORDERED: ACETAMINOPHEN 325 MG TABLET ONE (00:37)
[2019-07-14] MEDS: ACETAMINOPHEN 325 MG TABLET PO PRN ×2 (00:40→19:52)
[2019-07-14] MEDS: SODIUM CHLORIDE 0.9% 1,000 ML IV SCH ×2 (00:55→18:42)
[2019-07-14 01:11] VITALS: BP_SYST 122; BP_SYST 148; BP_DIAS 62; BP_DIAS 75
[2019-07-14] MEDS: AMPICILLIN/SULBACTAM 3 GM in SODIUM CHLORIDE 0.9% 100 ML IV SCH ×4 (04:36→22:16)
[2019-07-14 05:43] LABS: ALANINE AMINOTRANSFERASE 20 U/L (12-78); ALBUMIN 2.3 g/dL (3.4-5.0); ANION GAP 8 mmol/L (5-15); CALCIUM 7.4 mg/dL (8.5-10.1); CHLORIDE 107 mmol/L (98-107); CREATININE 1.04 mg/dL (0.7-1.3)
[2019-07-14 05:45] LABS: BASOPHILS # (AUTO) 0.03 x10^3/uL (0-0.1); BASOPHILS % (AUTO) 0 % (0-1); EOSINOPHILS # (AUTO) 0.12 x10^3/uL (0-0.4); EOSINOPHILS % (AUTO) 1 % (1-7); LYMPHOCYTES # (AUTO) 1.18 x10^3/uL (1-3.4); LYMPHOCYTES % (AUTO) 13 % (22-44); MD NO; MEAN CORPUSCULAR HEMOGLOBIN 30.7 pg (27.5-34.5); MEAN CORPUSCULAR HGB CONC 33.1 g/dL (33.2-36.2); MEAN CORPUSCULAR VOLUME 92.8 fL (81-97); MEAN PLATELET VOLUME 7.8 fL (7.4-10.4); MONOCYTES % (AUTO) 13 % (2-9); NEUTROPHILS # (AUTO) 6.46 x10^3/uL (1.8-6.8); NEUTROPHILS % (AUTO) 72 % (42-75); PLATELET COUNT 172 x10^3/uL (130-400); RED CELL DISTRIBUTION WIDTH 15.5 % (9.4-14.8)
[2019-07-14 05:46] VITALS: BP 168/71
[2019-07-14 05:46] LABS: ALKALINE PHOSPHATASE 62 U/L (45-117); BILIRUBIN,TOTAL 1.2 mg/dL (0.2-1.0); TOTAL PROTEIN 5.2 g/dL (6.4-8.2)
[2019-07-14] MEDS: CARVEDILOL 3.125 MG TABLET PO SCH ×2 (05:47→18:42)
[2019-07-14 07:35] VITALS: BP 133/92
[2019-07-14] MEDS: PANTOPROZOLE 40MG TABLET PO SCH (08:55)
[2019-07-14] MEDS: ASPIRIN 81 MG TABLET EC PO SCH (08:55)
[2019-07-14] MEDS: FLUDROCORTISONE 0.1 MG TABLET PO SCH (08:55)
[2019-07-14] MEDS: DOXYCYCLINE 100MG TABLET PO SCH ×2 (08:55→19:52)
[2019-07-14] MEDS: POLYETHYLENE GLYCOL 17 GM PACKET PO SCH (08:55)
[2019-07-14] MEDS: SENNA/DOCUSATE TABLET PO SCH (08:55)
[2019-07-14] MEDS: TICAGRELOR 90 MG TABLET PO SCH ×2 (08:56→19:52)
[2019-07-14] MEDS: ISOSORBIDE MONONITRATE ER 30 MG TABLET PO SCH (08:56)
[2019-07-14] MEDS ORDERED: OMNIPAQUE 350 MG/ML, 100ML BOTTLE ONE (12:53)
[2019-07-14 14:00] VITALS: BP 160/67
[2019-07-14 18:48] VITALS: BP 179/81
[2019-07-14] MEDS: hydrALAzine 20 MG/ML, 1ML IV PRN (19:13)
[2019-07-14] MEDS: MELATONIN 5 MG TABLET PO PRN (19:52)
[2019-07-14] MEDS: ATORVASTATIN 40 MG TABLET PO SCH (19:52)
[2019-07-14 19:57] VITALS: BP 175/84
[2019-07-15 01:32] VITALS: BP 124/62
[2019-07-15] MEDS: AMPICILLIN/SULBACTAM 3 GM in SODIUM CHLORIDE 0.9% 100 ML IV SCH ×4 (04:25→22:39)
[2019-07-15 05:38] VITALS: BP 160/63
[2019-07-15] MEDS: CARVEDILOL 3.125 MG TABLET PO SCH ×2 (05:42→18:03)
[2019-07-15 06:25] LABS: BASOPHILS % (AUTO) 0 % (0-1); EOSINOPHILS # (AUTO) 0.08 x10^3/uL (0-0.4); EOSINOPHILS % (AUTO) 1 % (1-7); LYMPHOCYTES # (AUTO) 0.86 x10^3/uL (1-3.4); LYMPHOCYTES % (AUTO) 9 % (22-44); MD NO; MEAN CORPUSCULAR HEMOGLOBIN 30.7 pg (27.5-34.5); MEAN CORPUSCULAR HGB CONC 33.2 g/dL (33.2-36.2); MEAN CORPUSCULAR VOLUME 92.5 fL (81-97); MEAN PLATELET VOLUME 7.4 fL (7.4-10.4); MONOCYTES # (AUTO) 1.11 x10^3/uL (0.2-0.8); MONOCYTES % (AUTO) 12 % (2-9); NEUTROPHILS % (AUTO) 78 % (42-75); PLATELET COUNT 197 x10^3/uL (130-400); RED BLOOD COUNT 3.49 x10^6/uL (4.38-5.82); RED CELL DISTRIBUTION WIDTH 15.5 % (9.4-14.8)
[2019-07-15 06:38] LABS: CHLORIDE 102 mmol/L (98-107)
[2019-07-15 06:46] LABS: ALANINE AMINOTRANSFERASE 29 U/L (12-78); ALBUMIN 2.4 g/dL (3.4-5.0); ALKALINE PHOSPHATASE 82 U/L (45-117); ANION GAP 12 mmol/L (5-15); BILIRUBIN,TOTAL 1.3 mg/dL (0.2-1.0); CALCIUM 7.8 mg/dL (8.5-10.1); CREATININE 0.99 mg/dL (0.7-1.3); TOTAL PROTEIN 5.8 g/dL (6.4-8.2)
[2019-07-15] MEDS ORDERED: POTASSIUM CHLORIDE 20 MEQ TAB.ER.PRT PO ONE ×2 (07:00→11:00)
[2019-07-15 07:18] VITALS: BP 153/72
[2019-07-15] MEDS: FLUDROCORTISONE 0.1 MG TABLET PO SCH (08:46)
[2019-07-15] MEDS: PANTOPROZOLE 40MG TABLET PO SCH (08:47)
[2019-07-15] MEDS: SENNA/DOCUSATE TABLET PO SCH (08:47)
[2019-07-15] MEDS: ASPIRIN 81 MG TABLET EC PO SCH (08:47)
[2019-07-15] MEDS: ISOSORBIDE MONONITRATE ER 30 MG TABLET PO SCH (08:48)
[2019-07-15] MEDS: DOXYCYCLINE 100MG TABLET PO SCH ×2 (08:48→19:48)
[2019-07-15] MEDS: TICAGRELOR 90 MG TABLET PO SCH ×2 (08:48→19:48)
[2019-07-15] MEDS: POLYETHYLENE GLYCOL 17 GM PACKET PO SCH (08:49)
[2019-07-15] MEDS: SODIUM CHLORIDE 0.9% 1,000 ML IV SCH (11:00)
[2019-07-15] MEDS ORDERED: NYSTATIN 500,000 UNITS/5 ML UDC PO ONE (11:30)
[2019-07-15] MEDS: ACETAMINOPHEN 325 MG TABLET PO PRN ×2 (12:17→19:48)
[2019-07-15 12:53] VITALS: BP 139/73
[2019-07-15 19:39] VITALS: BP 176/70
[2019-07-15] MEDS: hydrALAzine 20 MG/ML, 1ML IV PRN (19:48)
[2019-07-15] MEDS: ATORVASTATIN 40 MG TABLET PO SCH (19:48)
[2019-07-15] MEDS: MELATONIN 5 MG TABLET PO PRN (19:50)
[2019-07-16] VITALS (10 sets, daily range): BP systolic 101–189; BP diastolic 60–80
[2019-07-16] MEDS: SODIUM CHLORIDE 0.9% 1,000 ML IV SCH ×3 (01:28→20:05)
[2019-07-16] MEDS: AMPICILLIN/SULBACTAM 3 GM in SODIUM CHLORIDE 0.9% 100 ML IV SCH ×4 (04:23→22:31)
[2019-07-16] MEDS: CARVEDILOL 3.125 MG TABLET PO SCH ×2 (05:43→17:19)
[2019-07-16 06:16] LABS: BASOPHILS # (AUTO) 0.01 x10^3/uL (0-0.1); BASOPHILS % (AUTO) 0 % (0-1); EOSINOPHILS # (AUTO) 0.17 x10^3/uL (0-0.4); EOSINOPHILS % (AUTO) 2 % (1-7); LYMPHOCYTES # (AUTO) 0.98 x10^3/uL (1-3.4); LYMPHOCYTES % (AUTO) 12 % (22-44); MD NO; MEAN CORPUSCULAR HEMOGLOBIN 30.7 pg (27.5-34.5); MEAN CORPUSCULAR HGB CONC 33.1 g/dL (33.2-36.2); MEAN CORPUSCULAR VOLUME 92.8 fL (81-97); MONOCYTES # (AUTO) 0.98 x10^3/uL (0.2-0.8); MONOCYTES % (AUTO) 12 % (2-9); NEUTROPHILS % (AUTO) 75 % (42-75); PLATELET COUNT 217 x10^3/uL (130-400); RED BLOOD COUNT 3.48 x10^6/uL (4.38-5.82); RED CELL DISTRIBUTION WIDTH 15.4 % (9.4-14.8)
[2019-07-16 06:27] LABS: ALBUMIN 2.4 g/dL (3.4-5.0); ANION GAP 8 mmol/L (5-15); CHLORIDE 104 mmol/L (98-107); CREATININE 0.99 mg/dL (0.7-1.3)
[2019-07-16] MEDS: PANTOPROZOLE 40MG TABLET PO SCH (08:25)
[2019-07-16] MEDS: DOXYCYCLINE 100MG TABLET PO SCH ×2 (08:25→20:05)
[2019-07-16] MEDS: SENNA/DOCUSATE TABLET PO SCH (08:25)
[2019-07-16] MEDS: ISOSORBIDE MONONITRATE ER 30 MG TABLET PO SCH (08:26)
[2019-07-16] MEDS: ASPIRIN 81 MG TABLET EC PO SCH (08:26)
[2019-07-16] MEDS: FLUDROCORTISONE 0.1 MG TABLET PO SCH (08:27)
[2019-07-16] MEDS: TICAGRELOR 90 MG TABLET PO SCH ×2 (08:27→20:06)
[2019-07-16] MEDS: POLYETHYLENE GLYCOL 17 GM PACKET PO SCH (08:27)
[2019-07-16] MEDS: ACETAMINOPHEN 325 MG TABLET PO PRN (08:36)
[2019-07-16] MEDS ORDERED: POTASSIUM CHLORIDE 20 MEQ TAB.ER.PRT PO ONE ×2 (09:00→11:00)
[2019-07-16] MEDS ORDERED: SODIUM CHLORIDE 0.9% 1,000ML IVBOLUS ONE (10:30)
[2019-07-16] MEDS ORDERED: SODIUM CHLORIDE 0.9% 1,000 ML IV SCH (13:00)
[2019-07-16] MEDS: MELATONIN 5 MG TABLET PO PRN (20:05)
[2019-07-16] MEDS: ATORVASTATIN 40 MG TABLET PO SCH (20:06)
[2019-07-16] MEDS: hydrALAzine 20 MG/ML, 1ML IV PRN (20:19)
[2019-07-17 00:30] VITALS: BP 158/74
[2019-07-17 02:10] VITALS: BP 155/69
[2019-07-17] MEDS: CARVEDILOL 3.125 MG TABLET PO SCH (02:36)
[2019-07-17] MEDS: AMPICILLIN/SULBACTAM 3 GM in SODIUM CHLORIDE 0.9% 100 ML IV SCH (04:30)
[2019-07-17] MEDS: SODIUM CHLORIDE 0.9% 1,000 ML IV SCH ×2 (04:30→13:00)
[2019-07-17] MEDS: ISOSORBIDE MONONITRATE ER 30 MG TABLET PO SCH (08:31)
[2019-07-17] MEDS: PANTOPROZOLE 40MG TABLET PO SCH (08:31)
[2019-07-17] MEDS: ASPIRIN 81 MG TABLET EC PO SCH (08:31)
[2019-07-17] MEDS: SENNA/DOCUSATE TABLET PO SCH (08:31)
[2019-07-17] MEDS: TICAGRELOR 90 MG TABLET PO SCH (08:31)
[2019-07-17] MEDS: DOXYCYCLINE 100MG TABLET PO SCH (08:31)
[2019-07-17] MEDS: POLYETHYLENE GLYCOL 17 GM PACKET PO SCH (08:32)
[2019-07-17 08:50] VITALS: BP 187/75
[2019-07-17] MEDS ORDERED: CARVEDILOL 3.125 MG TABLET PO SCH (09:00)
[2019-07-17 10:10] VITALS: BP 120/71
[2019-07-17] MEDS ORDERED: MELA5TAB14 PO (11:55)
[2019-07-17] MEDS ORDERED: CARV3.1212 PO (11:55)
[2019-07-17 13:22] VITALS: BP 131/64
[2019-07-18] MEDS ORDERED: FLUDROCORTISONE 0.1 MG TABLET PO SCH (09:00)
== END 2019-07-17 16:35 | DRG 193 ==
LOC: ED 17:56 → EDIP 19:03 → 4EST 19:58 → 4WST 07-10 20:36
PROVIDERS: ADMIT Internal Medicine; ATTEND Hospitalist
PROC: 0T9B70Z Drainage of Bladder with Drainage Device, Via Natural or Artificial Opening (ICD-10-PCS; principal; 2019-07-09)
DX: J15.9 Unspecified bacterial pneumonia (principal); G93.41 Metabolic encephalopathy; I21.4 Non-ST elevation (NSTEMI) myocardial infarction; J96.90 Respiratory failure, unspecified, unspecified whether with hypoxia or hypercapnia; E87.1 Hypo-osmolality and hyponatremia; K52.9 Noninfective gastroenteritis and colitis, unspecified; K21.9 Gastro-esophageal reflux disease without esophagitis; I25.2 Old myocardial infarction; M16.12 Unilateral primary osteoarthritis, left hip; D64.9 Anemia, unspecified; E86.1 Hypovolemia; I10 Essential (primary) hypertension; K59.00 Constipation, unspecified; R62.7 Adult failure to thrive; Z68.26 Body mass index [BMI] 26.0-26.9, adult; Z90.49 Acquired absence of other specified parts of digestive tract; S16.1XXA Strain of muscle, fascia and tendon at neck level, initial encounter; W18.30XA Fall on same level, unspecified, initial encounter; Y92.009 Unspecified place in unspecified non-institutional (private) residence as the place of occurrence of the external cause; Y93.89 Activity, other specified; Y99.8 Other external cause status; S09.90XA Unspecified injury of head, initial encounter; I25.10 Atherosclerotic heart disease of native coronary artery without angina pectoris
CPT/HCPCS: 36415; 51702; 70450; 71045; 72125; 74018; 74177; 80048; 80053; 81001; 82040; 82140; 82607; 83735; 84100; 84145; 84443; 84484; 85025; 87040; 87070; 87205; 90686; 93005; 99285; G0378; J0295; Q9967; J0360; J1200; J1630; J2060; J7030

== ENCOUNTER 2019-08-03 17:22 | Observation (INO) | payer MEDICARE ==
[~2019-08-03] VITALS: Ht 177.8 cm; Wt 74.0 kg
[~2019-08-03 17:22] MED LIST changes: +MELA5TAB14 PO
--- NOTE | 2019-08-03 17:56 | NUR ---
TASK RN: 89 Y/O MALE PRESENTS TO ED WITH C/O DIZZINESS AND RIGHT LEG PAIN. PER PT "I'VE BEEN LIGHT HEADED SINCE ABOUT NOON. I ALSO HAVE SOME LEG PAIN. I'VE HAD THE LEG PAIN FOR A WHILE, BUT TODAY IT'S WORSE. I COULDN'T WALK." NADN. FAMILY BEDSIDE. PT PLACED ON CONT PULSE OX,NIBP. NO C/O N/V/D, CP, SOB, SYNCOPE,
--- NOTE | 2019-08-03 18:08 | NUR ---
TASK RN: BEDSIDE REPORT TO NINA MOELLER.
--- NOTE | 2019-08-03 18:09 | NUR ---
REPORT RECEIVED FROM CLAUDIA WOOD.
--- NOTE | 2019-08-03 18:40 | NUR ---
URINAL AT BEDSIDE. PT AWARES OF UA.
--- NOTE | 2019-08-03 18:53 | NUR ---
REPORT GIVEN TO PHYLLIS WOOD.
[2019-08-03 19:44] LABS: BASOPHILS # (AUTO) 0.07 x10^3/uL (0-0.1); BASOPHILS % (AUTO) 1 % (0-1); EOSINOPHILS # (AUTO) 0.14 x10^3/uL (0-0.4); EOSINOPHILS % (AUTO) 2 % (1-7); LYMPHOCYTES # (AUTO) 1.68 x10^3/uL (1-3.4); LYMPHOCYTES % (AUTO) 24 % (22-44); MD NO; MEAN CORPUSCULAR HEMOGLOBIN 30.4 pg (27.5-34.5); MEAN CORPUSCULAR HGB CONC 32.6 g/dL (33.2-36.2); MEAN CORPUSCULAR VOLUME 93.2 fL (81-97); MEAN PLATELET VOLUME 7.7 fL (7.4-10.4); MONOCYTES # (AUTO) 0.98 x10^3/uL (0.2-0.8); MONOCYTES % (AUTO) 14 % (2-9); NEUTROPHILS # (AUTO) 4.09 x10^3/uL (1.8-6.8); NEUTROPHILS % (AUTO) 59 % (42-75); PLATELET COUNT 263 x10^3/uL (130-400); RED BLOOD COUNT 3.77 x10^6/uL (4.38-5.82); RED CELL DISTRIBUTION WIDTH 15.9 % (9.4-14.8)
[2019-08-03 19:49] LABS: ALANINE AMINOTRANSFERASE 23 U/L (12-78); ANION GAP 6 mmol/L (5-15); CALCIUM 8.2 mg/dL (8.5-10.1); CHLORIDE 103 mmol/L (98-107); CREATININE 1.37 mg/dL (0.7-1.3)
[2019-08-03 19:54] LABS: ALKALINE PHOSPHATASE 98 U/L (45-117); BILIRUBIN,TOTAL 0.4 mg/dL (0.2-1.0); TOTAL PROTEIN 6.7 g/dL (6.4-8.2); TROPONIN I < 0.015 ng/mL (0.000-0.045)
[2019-08-03 20:17] LABS: MICROSCOPIC AUTO
[2019-08-03 20:29] LABS: CULTURE INDICATED? NO
[2019-08-03] MEDS ORDERED: GABAPENTIN 100 MG CAPSULE PO SCH (20:33)
[2019-08-03] MEDS ORDERED: ONDANSETRON ODT 4 MG PO PRN (21:00)
[2019-08-03] MEDS ORDERED: MECLIZINE HCL 25 MG TABLET PO PRN (21:00)
[2019-08-03] MEDS ORDERED: BISACODYL 10 MG SUPP PR PRN (21:00)
[2019-08-03] MEDS ORDERED: POLYETHYLENE GLYCOL 17 GM PACKET PO PRN (21:00)
[2019-08-03] MEDS: TICAGRELOR 90 MG TABLET PO SCH (21:45)
[2019-08-03] MEDS: HEPARIN 5,000 UNITS/ML, 1ML SQ SCH (21:45)
[2019-08-03] MEDS: MELATONIN 5 MG TABLET PO PRN (21:45)
[2019-08-03] MEDS: GABAPENTIN 100 MG CAPSULE PO PRN (21:46)
[2019-08-03] MEDS: SODIUM CHLORIDE FLUSH 10ML SYR IVF SCH (21:46)
[2019-08-03] MEDS: ATORVASTATIN 40 MG TABLET PO SCH (21:46)
[2019-08-03 21:50] VITALS: BP 187/84
[2019-08-04] VITALS (12 sets, daily range): BP systolic 104–192; BP diastolic 66–85
[2019-08-04] MEDS: HEPARIN 5,000 UNITS/ML, 1ML SQ SCH ×3 (05:29→21:01)
[2019-08-04] MEDS: CARVEDILOL 3.125 MG TABLET PO SCH (05:29)
[2019-08-04 05:34] LABS: BASOPHILS # (AUTO) 0.06 x10^3/uL (0-0.1); BASOPHILS % (AUTO) 1 % (0-1); EOSINOPHILS # (AUTO) 0.19 x10^3/uL (0-0.4); EOSINOPHILS % (AUTO) 2 % (1-7); LYMPHOCYTES # (AUTO) 2.02 x10^3/uL (1-3.4); LYMPHOCYTES % (AUTO) 25 % (22-44); MD NO; MEAN CORPUSCULAR HEMOGLOBIN 29.9 pg (27.5-34.5); MEAN CORPUSCULAR VOLUME 93.4 fL (81-97); MONOCYTES # (AUTO) 0.86 x10^3/uL (0.2-0.8); MONOCYTES % (AUTO) 10 % (2-9); NEUTROPHILS % (AUTO) 62 % (42-75); PLATELET COUNT 287 x10^3/uL (130-400); RED BLOOD COUNT 4.45 x10^6/uL (4.38-5.82); RED CELL DISTRIBUTION WIDTH 15.5 % (9.4-14.8)
[2019-08-04 05:39] LABS: CHLORIDE 105 mmol/L (98-107)
[2019-08-04 05:44] LABS: ALANINE AMINOTRANSFERASE 24 U/L (12-78); ALBUMIN 3.4 g/dL (3.4-5.0); ALKALINE PHOSPHATASE 88 U/L (45-117); ANION GAP 6 mmol/L (5-15); BILIRUBIN,TOTAL 0.7 mg/dL (0.2-1.0); CALCIUM 9.1 mg/dL (8.5-10.1); CREATININE 1.25 mg/dL (0.7-1.3); TOTAL PROTEIN 7.8 g/dL (6.4-8.2)
[2019-08-04] MEDS: SODIUM CHLORIDE FLUSH 10ML SYR IVF SCH ×2 (09:00→21:01)
[2019-08-04] MEDS ORDERED: ISOSORBIDE MONONITRATE ER 30 MG TABLET PO SCH (09:00)
[2019-08-04] MEDS: ASPIRIN 81 MG TABLET EC PO SCH (09:20)
[2019-08-04] MEDS: MAGNESIUM OXIDE 400 MG TABLET PO SCH (09:20)
[2019-08-04] MEDS: SENNA/DOCUSATE TABLET PO SCH (09:20)
[2019-08-04] MEDS: PANTOPROZOLE 40MG TABLET PO SCH (09:20)
[2019-08-04] MEDS: TICAGRELOR 90 MG TABLET PO SCH ×2 (09:20→21:01)
[2019-08-04] MEDS: ATORVASTATIN 40 MG TABLET PO SCH (21:00)
[2019-08-04] MEDS: GABAPENTIN 100 MG CAPSULE PO PRN (21:00)
[2019-08-04] MEDS: MELATONIN 5 MG TABLET PO PRN (21:00)
[2019-08-05] VITALS (12 sets, daily range): BP systolic 98–171; BP diastolic 58–83
[2019-08-05] MEDS: CARVEDILOL 3.125 MG TABLET PO SCH (05:51)
[2019-08-05] MEDS: HEPARIN 5,000 UNITS/ML, 1ML SQ SCH ×4 (05:51→21:38)
[2019-08-05] MEDS: SENNA/DOCUSATE TABLET PO SCH (09:00)
[2019-08-05] MEDS: SODIUM CHLORIDE FLUSH 10ML SYR IVF SCH ×2 (09:00→21:39)
[2019-08-05] MEDS: ASPIRIN 81 MG TABLET EC PO SCH (09:05)
[2019-08-05] MEDS: MAGNESIUM OXIDE 400 MG TABLET PO SCH (09:05)
[2019-08-05] MEDS: PANTOPROZOLE 40MG TABLET PO SCH (09:05)
[2019-08-05] MEDS: TICAGRELOR 90 MG TABLET PO SCH ×2 (09:06→21:39)
[2019-08-05] MEDS: ACETAMINOPHEN 500 MG TABLET PO PRN (17:56)
[2019-08-05] MEDS ORDERED: OMNIPAQUE 350 MG/ML, 100ML BOTTLE ONE (21:31)
[2019-08-05] MEDS: ATORVASTATIN 40 MG TABLET PO SCH (21:38)
[2019-08-05] MEDS: GABAPENTIN 100 MG CAPSULE PO PRN (21:38)
[2019-08-05] MEDS: MELATONIN 5 MG TABLET PO PRN (21:38)
[2019-08-06] VITALS (9 sets, daily range): BP systolic 120–167; BP diastolic 67–80
[2019-08-06 05:08] LABS: BASOPHILS # (AUTO) 0.06 x10^3/uL (0-0.1); BASOPHILS % (AUTO) 1 % (0-1); EOSINOPHILS # (AUTO) 0.16 x10^3/uL (0-0.4); EOSINOPHILS % (AUTO) 2 % (1-7); LYMPHOCYTES # (AUTO) 1.52 x10^3/uL (1-3.4); LYMPHOCYTES % (AUTO) 18 % (22-44); MD NO; MEAN CORPUSCULAR HEMOGLOBIN 29.8 pg (27.5-34.5); MEAN CORPUSCULAR HGB CONC 32.7 g/dL (33.2-36.2); MEAN CORPUSCULAR VOLUME 91.3 fL (81-97); MEAN PLATELET VOLUME 7.7 fL (7.4-10.4); MONOCYTES # (AUTO) 1.26 x10^3/uL (0.2-0.8); MONOCYTES % (AUTO) 15 % (2-9); NEUTROPHILS # (AUTO) 5.58 x10^3/uL (1.8-6.8); NEUTROPHILS % (AUTO) 65 % (42-75); PLATELET COUNT 199 x10^3/uL (130-400); RED BLOOD COUNT 4.09 x10^6/uL (4.38-5.82); RED CELL DISTRIBUTION WIDTH 15.8 % (9.4-14.8)
[2019-08-06] MEDS: HEPARIN 5,000 UNITS/ML, 1ML SQ SCH ×3 (05:56→20:16)
[2019-08-06] MEDS: CARVEDILOL 3.125 MG TABLET PO SCH (05:56)
[2019-08-06 06:27] LABS: ANION GAP 8 mmol/L (5-15); CALCIUM 8.6 mg/dL (8.5-10.1); CHLORIDE 102 mmol/L (98-107); CREATININE 1.21 mg/dL (0.7-1.3)
[2019-08-06] MEDS: MAGNESIUM OXIDE 400 MG TABLET PO SCH (08:42)
[2019-08-06] MEDS: TICAGRELOR 90 MG TABLET PO SCH ×2 (08:42→20:17)
[2019-08-06] MEDS: PANTOPROZOLE 40MG TABLET PO SCH (08:42)
[2019-08-06] MEDS: SENNA/DOCUSATE TABLET PO SCH (08:42)
[2019-08-06] MEDS: ASPIRIN 81 MG TABLET EC PO SCH (08:42)
[2019-08-06] MEDS: SODIUM CHLORIDE FLUSH 10ML SYR IVF SCH ×2 (08:43→19:44)
[2019-08-06] MEDS ORDERED: OMNIPAQUE 350 MG/ML, 100ML BOTTLE ONE (14:01)
[2019-08-06] MEDS: CEFTRIAXONE PMX 2GM/50ML 50 ML IV SCH (19:44)
[2019-08-06] MEDS: MELATONIN 5 MG TABLET PO PRN (20:16)
[2019-08-06] MEDS: ACETAMINOPHEN 500 MG TABLET PO PRN (20:16)
[2019-08-06] MEDS: DOXYCYCLINE 100MG TABLET PO SCH (20:17)
[2019-08-06] MEDS: ATORVASTATIN 40 MG TABLET PO SCH (20:17)
[2019-08-07 02:25] VITALS: BP 110/80
[2019-08-07] MEDS: SENNA/DOCUSATE TABLET PO SCH (06:48)
[2019-08-07] MEDS: HEPARIN 5,000 UNITS/ML, 1ML SQ SCH ×3 (06:48→21:33)
[2019-08-07] MEDS: DOXYCYCLINE 100MG TABLET PO SCH ×2 (06:49→21:33)
[2019-08-07] MEDS: CARVEDILOL 3.125 MG TABLET PO SCH (06:49)
[2019-08-07] MEDS: ASPIRIN 81 MG TABLET EC PO SCH (06:49)
[2019-08-07] MEDS: PANTOPROZOLE 40MG TABLET PO SCH (06:49)
[2019-08-07] MEDS: MAGNESIUM OXIDE 400 MG TABLET PO SCH (06:49)
[2019-08-07] MEDS: SODIUM CHLORIDE FLUSH 10ML SYR IVF SCH ×2 (06:49→21:00)
[2019-08-07] MEDS: TICAGRELOR 90 MG TABLET PO SCH ×2 (06:49→21:33)
[2019-08-07 06:56] VITALS: BP 151/76
[2019-08-07 13:18] VITALS: BP 110/62
[2019-08-07] MEDS: CEFTRIAXONE PMX 2GM/50ML 50 ML IV SCH (17:28)
[2019-08-07 21:27] VITALS: BP_SYST 180; BP_SYST 185; BP_DIAS 79; BP_DIAS 90
[2019-08-07] MEDS: MELATONIN 5 MG TABLET PO PRN (21:33)
[2019-08-07] MEDS: ATORVASTATIN 40 MG TABLET PO SCH (21:33)
[2019-08-07 22:30] VITALS: BP 167/75
[2019-08-08 01:35] VITALS: BP 163/61
[2019-08-08] MEDS: HEPARIN 5,000 UNITS/ML, 1ML SQ SCH (05:09)
[2019-08-08] MEDS: CARVEDILOL 3.125 MG TABLET PO SCH (05:10)
[2019-08-08 07:05] VITALS: BP 153/72
[2019-08-08] MEDS ORDERED: CEFD300C37 PO (08:07)
[2019-08-08] MEDS: PANTOPROZOLE 40MG TABLET PO SCH (08:20)
[2019-08-08] MEDS: ASPIRIN 81 MG TABLET EC PO SCH (08:20)
[2019-08-08] MEDS: MAGNESIUM OXIDE 400 MG TABLET PO SCH (08:21)
[2019-08-08] MEDS: SODIUM CHLORIDE FLUSH 10ML SYR IVF SCH (08:21)
[2019-08-08] MEDS: SENNA/DOCUSATE TABLET PO SCH (08:21)
[2019-08-08] MEDS: DOXYCYCLINE 100MG TABLET PO SCH (08:21)
[2019-08-08] MEDS: TICAGRELOR 90 MG TABLET PO SCH (08:21)
[2019-08-08] MEDS ORDERED: ASCO-219 PO-COUM (08:35)
[2019-08-08] MEDS ORDERED: VIT1TABL3 PO-COUM (08:35)
[2019-08-08 13:25] VITALS: BP 134/84
== END 2019-08-08 14:19 | disposition home health service (06) ==
LOC: ED 17:56 → INTOOBSV 20:05 → EDIP 20:05 → 4WST 21:23 → DCLOUNGE 08-08 14:00
PROVIDERS: ADMIT Family Medicine; ATTEND Family Medicine
DX: R42 Dizziness and giddiness (principal); D64.9 Anemia, unspecified; E87.1 Hypo-osmolality and hyponatremia; M16.12 Unilateral primary osteoarthritis, left hip; I21.4 Non-ST elevation (NSTEMI) myocardial infarction; I51.89 Other ill-defined heart diseases; I10 Essential (primary) hypertension; R19.7 Diarrhea, unspecified; K21.9 Gastro-esophageal reflux disease without esophagitis; F41.9 Anxiety disorder, unspecified; I25.10 Atherosclerotic heart disease of native coronary artery without angina pectoris; J18.9 Pneumonia, unspecified organism; E55.9 Vitamin D deficiency, unspecified; I44.0 Atrioventricular block, first degree; Z86.79 Personal history of other diseases of the circulatory system; Z79.899 Other long term (current) drug therapy; Z79.82 Long term (current) use of aspirin
CPT/HCPCS: 36415; 70498; 71275; 73552; 80048; 80053; 81001; 82306; 82533; 82607; 83605; 83735; 84100; 84443; 84484; 85025; 87040; 93005; 93880; 96365; 96366; 96372; 97162; 97166; 97530; 99285; G0378; J0696; J1644; Q9967

== ENCOUNTER 2019-08-18 16:50 | Inpatient (IN) | payer MEDICARE ==
[~2019-08-18] VITALS: Ht 177.8 cm; Wt 68.2 kg
[~2019-08-18 16:50] MED LIST changes: +ASCO-219 PO-COUM; +VIT1TABL3 PO-COUM
[2019-08-18] MEDS ORDERED: ASPIRIN 81 MG TABLET CHEW ONE (17:47)
[2019-08-18] MEDS ORDERED: SODIUM CHLORIDE FLUSH 10ML SYR IVF ONE (18:00)
[2019-08-18] MEDS ORDERED: NITROGLYCERIN SINGLE TAB 0.4 MG SL PRN (18:00)
[2019-08-18] MEDS ORDERED: ASPIRIN 81 MG TABLET CHEW PO ONE (18:00)
[2019-08-18 18:15] LABS: BASOPHILS # (AUTO) 0.05 x10^3/uL (0-0.1); BASOPHILS % (AUTO) 1 % (0-1); EOSINOPHILS # (AUTO) 0.41 x10^3/uL (0-0.4); EOSINOPHILS % (AUTO) 6 % (1-7); LYMPHOCYTES # (AUTO) 1.57 x10^3/uL (1-3.4); LYMPHOCYTES % (AUTO) 21 % (22-44); MD NO; MEAN CORPUSCULAR HEMOGLOBIN 30.8 pg (27.5-34.5); MEAN CORPUSCULAR HGB CONC 32.8 g/dL (33.2-36.2); MEAN CORPUSCULAR VOLUME 93.7 fL (81-97); MEAN PLATELET VOLUME 7.7 fL (7.4-10.4); MONOCYTES % (AUTO) 15 % (2-9); NEUTROPHILS # (AUTO) 4.24 x10^3/uL (1.8-6.8); NEUTROPHILS % (AUTO) 58 % (42-75); PLATELET COUNT 269 x10^3/uL (130-400); RED BLOOD COUNT 3.54 x10^6/uL (4.38-5.82); RED CELL DISTRIBUTION WIDTH 16.4 % (9.4-14.8)
[2019-08-18 18:21] LABS: INTERNATIONAL NORMALIZED RATIO 1.09 (0.93-1.1); PROTHROMBIN TIME 11.4 Seconds (9.6-11.5)
[2019-08-18 18:24] LABS: ALBUMIN 2.7 g/dL (3.4-5.0); ANION GAP 7 mmol/L (5-15); CALCIUM 8.1 mg/dL (8.5-10.1); CHLORIDE 106 mmol/L (98-107)
[2019-08-18 18:29] LABS: CREATININE 1.17 mg/dL (0.7-1.3); TROPONIN I < 0.015 ng/mL (0.000-0.045)
[2019-08-18] MEDS ORDERED: SODIUM CHLORIDE FLUSH 10ML SYR IVF PRN (20:30)
[2019-08-18] MEDS ORDERED: TEMAZEPAM 15 MG CAPSULE PO PRN (22:00)
[2019-08-18] MEDS ORDERED: ACETAMINOPHEN 500 MG TABLET PO PRN (22:00)
[2019-08-18] MEDS ORDERED: ONDANSETRON 2MG/ML, 2ML IVPush PRN (22:00)
[2019-08-18] MEDS ORDERED: ENALAPRILAT 1.25 MG/ML, 2ML IVPush PRN (22:00)
[2019-08-18] MEDS ORDERED: MELATONIN 5 MG TABLET PO PRN (22:00)
[2019-08-18] MEDS ORDERED: BISACODYL 10 MG SUPP PR PRN (22:00)
[2019-08-18] MEDS ORDERED: POTASSIUM CHLORIDE 20 MEQ TAB.ER.PRT PO ONE (22:00)
[2019-08-18] MEDS: ATORVASTATIN 40 MG TABLET PO SCH (22:57)
[2019-08-18] MEDS: TICAGRELOR 90 MG TABLET PO SCH (22:57)
[2019-08-19] VITALS (10 sets, daily range): BP systolic 152–182; BP diastolic 65–91
[2019-08-19 01:00] LABS: TROPONIN I < 0.015 ng/mL (0.000-0.045)
[2019-08-19] MEDS ORDERED: ENALAPRILAT 1.25 MG/ML, 1ML ONE (01:19)
[2019-08-19] MEDS: CARVEDILOL 3.125 MG TABLET PO SCH (06:00)
[2019-08-19 06:57] LABS: BASOPHILS # (AUTO) 0.07 x10^3/uL (0-0.1); BASOPHILS % (AUTO) 1 % (0-1); EOSINOPHILS # (AUTO) 0.48 x10^3/uL (0-0.4); EOSINOPHILS % (AUTO) 6 % (1-7); LYMPHOCYTES # (AUTO) 1.61 x10^3/uL (1-3.4); LYMPHOCYTES % (AUTO) 20 % (22-44); MD NO; MEAN CORPUSCULAR HEMOGLOBIN 30.6 pg (27.5-34.5); MEAN CORPUSCULAR HGB CONC 32.7 g/dL (33.2-36.2); MEAN CORPUSCULAR VOLUME 93.3 fL (81-97); MEAN PLATELET VOLUME 7.3 fL (7.4-10.4); MONOCYTES # (AUTO) 0.96 x10^3/uL (0.2-0.8); MONOCYTES % (AUTO) 12 % (2-9); NEUTROPHILS # (AUTO) 4.94 x10^3/uL (1.8-6.8); NEUTROPHILS % (AUTO) 61 % (42-75); PLATELET COUNT 283 x10^3/uL (130-400); RED CELL DISTRIBUTION WIDTH 15.8 % (9.4-14.8)
[2019-08-19 07:09] LABS: ANION GAP 4 mmol/L (5-15); CALCIUM 8.5 mg/dL (8.5-10.1); CHLORIDE 108 mmol/L (98-107); CREATININE 1.09 mg/dL (0.7-1.3)
[2019-08-19 07:13] LABS: TROPONIN I < 0.015 ng/mL (0.000-0.045)
[2019-08-19] MEDS: TICAGRELOR 90 MG TABLET PO SCH ×2 (09:03→20:48)
[2019-08-19] MEDS: ASPIRIN 81 MG TABLET EC PO SCH (09:03)
[2019-08-19] MEDS: PANTOPROZOLE 40MG TABLET PO SCH (09:03)
[2019-08-19] MEDS: GABAPENTIN 100 MG CAPSULE PO PRN (09:08)
[2019-08-19] MEDS: ACETAMINOPHEN 325 MG TABLET PO PRN ×2 (09:08→20:46)
[2019-08-19 09:51] LABS: OCCULT BLOOD NEGATIVE (NEGATIVE)
[2019-08-19] MEDS: METHOCARBAMOL 500 MG TABLET PO PRN (17:42)
[2019-08-19] MEDS: ATORVASTATIN 40 MG TABLET PO SCH (20:47)
[2019-08-19] MEDS: LISINOPRIL 10 MG TABLET PO SCH (20:47)
[2019-08-20] VITALS (7 sets, daily range): BP systolic 148–183; BP diastolic 67–83
[2019-08-20] MEDS: CARVEDILOL 3.125 MG TABLET PO SCH ×2 (06:00→08:20)
[2019-08-20] MEDS: GABAPENTIN 100 MG CAPSULE PO PRN (08:16)
[2019-08-20] MEDS: LISINOPRIL 10 MG TABLET PO SCH (08:16)
[2019-08-20] MEDS: METHOCARBAMOL 500 MG TABLET PO PRN (08:16)
[2019-08-20] MEDS: ASPIRIN 81 MG TABLET EC PO SCH ×2 (08:17→08:19)
[2019-08-20] MEDS: TICAGRELOR 90 MG TABLET PO SCH (08:17)
[2019-08-20] MEDS: PANTOPROZOLE 40MG TABLET PO SCH (08:17)
[2019-08-20] MEDS ORDERED: ACET325T26 PO (12:49)
[2019-08-20] MEDS ORDERED: METH500T7 PO (12:49)
[2019-08-20] MEDS ORDERED: LISI-167 PO (12:49)
== END 2019-08-20 14:45 | disposition home health service (06) | DRG 313 ==
LOC: ED 18:32 → 5SO 20:30 → DCLOUNGE 08-20 14:34
PROVIDERS: ADMIT Family Medicine; ATTEND Family Medicine
DX: R07.89 Other chest pain (principal); I25.110 Atherosclerotic heart disease of native coronary artery with unstable angina pectoris; E87.1 Hypo-osmolality and hyponatremia; I50.32 Chronic diastolic (congestive) heart failure; D64.9 Anemia, unspecified; F41.9 Anxiety disorder, unspecified; I11.0 Hypertensive heart disease with heart failure; I44.0 Atrioventricular block, first degree; K21.9 Gastro-esophageal reflux disease without esophagitis; K52.9 Noninfective gastroenteritis and colitis, unspecified; M16.12 Unilateral primary osteoarthritis, left hip; Z96.651 Presence of right artificial knee joint; I25.2 Old myocardial infarction; Z95.5 Presence of coronary angioplasty implant and graft; Z90.49 Acquired absence of other specified parts of digestive tract
CPT/HCPCS: 36415; 71045; 80048; 82040; 82272; 83735; 83880; 84100; 84484; 85025; 85610; 85730; 93005; 99285; G0378

== ENCOUNTER 2019-08-23 17:15 | Observation (INO) | payer MEDICARE ==
[~2019-08-23] VITALS: Ht 177.8 cm; Wt 74.1 kg
[~2019-08-23 17:15] MED LIST changes: +ACET325T26 PO; +METH500T7 PO
[2019-08-23 18:16] LABS: BASOPHILS # (AUTO) 0.06 x10^3/uL (0-0.1); BASOPHILS % (AUTO) 1 % (0-1); EOSINOPHILS # (AUTO) 0.42 x10^3/uL (0-0.4); EOSINOPHILS % (AUTO) 5 % (1-7); LYMPHOCYTES # (AUTO) 1.79 x10^3/uL (1-3.4); LYMPHOCYTES % (AUTO) 20 % (22-44); MD NO; MEAN CORPUSCULAR HEMOGLOBIN 30.3 pg (27.5-34.5); MEAN CORPUSCULAR HGB CONC 32.3 g/dL (33.2-36.2); MEAN CORPUSCULAR VOLUME 93.9 fL (81-97); MEAN PLATELET VOLUME 7.5 fL (7.4-10.4); MONOCYTES # (AUTO) 1.33 x10^3/uL (0.2-0.8); MONOCYTES % (AUTO) 15 % (2-9); NEUTROPHILS % (AUTO) 60 % (42-75); PLATELET COUNT 305 x10^3/uL (130-400); RED BLOOD COUNT 3.88 x10^6/uL (4.38-5.82); RED CELL DISTRIBUTION WIDTH 16.1 % (9.4-14.8)
[2019-08-23 18:26] LABS: ALANINE AMINOTRANSFERASE 21 U/L (12-78); ALBUMIN 3.2 g/dL (3.4-5.0); ANION GAP 7 mmol/L (5-15); CALCIUM 8.3 mg/dL (8.5-10.1); CHLORIDE 100 mmol/L (98-107); CREATININE 1.23 mg/dL (0.7-1.3)
[2019-08-23 18:29] LABS: ALKALINE PHOSPHATASE 105 U/L (45-117); BILIRUBIN,TOTAL 0.7 mg/dL (0.2-1.0); TOTAL PROTEIN 7.2 g/dL (6.4-8.2)
[2019-08-23 19:27] LABS: MICROSCOPIC AUTO
--- NOTE | 2019-08-23 19:31 | NUR ---
Pt presents to ed c/o R groin and R side/flank painxtoday. States stent placed early july for mi. Pt denies any cp/sob today. Multiple levels of healing bruises noted on r side of abdomen. States a fall on 08/03. Pt amb w/ steady gait w/ from home walker. All monitoring applied. +cms.
[2019-08-23 19:35] LABS: CULTURE INDICATED? NO
--- NOTE | 2019-08-23 19:45 | NUR ---
Pt to ct at this time. Offered pain medication prior to transport. Pt refused at this time.
[2019-08-23] MEDS ORDERED: SODIUM CHLORIDE FLUSH 10ML SYR IVF ONE (20:00)
[2019-08-23] MEDS ORDERED: MORPHINE SULFATE 4 MG/ML, 1ML IVPush PRN (20:00)
--- NOTE | 2019-08-23 20:22 | NUR ---
All results back. Pt up for recheck.
--- NOTE | 2019-08-23 20:47 | NUR ---
at bedside for recheck.
--- NOTE | 2019-08-23 21:27 | NUR ---
Awaiting cultures for abx use.
[2019-08-23] MEDS ORDERED: AZITHROMYCIN 500 MG in SODIUM CHLORIDE 0.9% 250 ML IVPB ONE (21:30)
[2019-08-23] MEDS ORDERED: AMPICILLIN/SULBACTAM 3 GM in SODIUM CHLORIDE 0.9% 100 ML IV ONE (21:30)
--- NOTE | 2019-08-23 22:10 | NUR ---
Pt amb w/ steady gait w/ front wheel walker to rr at this time.
[2019-08-24] MEDS ORDERED: OMNIPAQUE 350 MG/ML, 100ML BOTTLE ONE (00:03)
--- NOTE | 2019-08-24 01:25 | NUR ---
Pt sleeping comfortably on gurney. Rr even and unlabored. Nadn.
--- NOTE | 2019-08-24 02:00 | NUR ---
Pt blanket warmer applied and given warm blanket and urinal.
[2019-08-24] MEDS ORDERED: ONDANSETRON 2MG/ML, 2ML IVPush PRN (02:30)
[2019-08-24] MEDS ORDERED: METHOCARBAMOL 500 MG TABLET PO PRN (02:30)
[2019-08-24] MEDS ORDERED: ACETAMINOPHEN 325 MG TABLET PO PRN (02:30)
--- NOTE | 2019-08-24 02:54 | NUR ---
Pt given another urinal and warm blanket for comfort.
--- NOTE | 2019-08-24 04:04 | NUR ---
Pt given water per request.
--- NOTE | 2019-08-24 04:33 | NUR ---
Arash gracia initiated per pt request. Given more water. No other immediate needs.
[2019-08-24] MEDS ORDERED: CARVEDILOL 3.125 MG TABLET ONE (05:23)
[2019-08-24 05:44] LABS: ANION GAP 10 mmol/L (5-15); CALCIUM 8.9 mg/dL (8.5-10.1); CHLORIDE 105 mmol/L (98-107); CREATININE 1.04 mg/dL (0.7-1.3)
[2019-08-24] MEDS: CARVEDILOL 3.125 MG TABLET PO SCH (05:51)
--- NOTE | 2019-08-24 06:45 | NUR ---
RECEIVED REPORT FROM LUIS WOOD AND ASSUMED CARE. PT OUT OF BED TO BATHROOM WITH USE OF WALKER, NO ASSISTANCE.
[2019-08-24] MEDS ORDERED: CEFTRIAXONE PMX 1GM/50ML 50 ML ONE (08:06)
[2019-08-24] MEDS: CEFTRIAXONE PMX 1GM/50ML 50 ML IV SCH (08:09)
[2019-08-24] MEDS ORDERED: PANTOPRAZOLE 20MG TABLET ONE (08:43)
[2019-08-24] MEDS ORDERED: LISINOPRIL 10 MG TABLET ONE (08:44)
[2019-08-24] MEDS ORDERED: ASPIRIN 81 MG TABLET EC ONE (08:44)
[2019-08-24] MEDS ORDERED: SENNA/DOCUSATE TABLET ONE (08:44)
[2019-08-24] MEDS: ASPIRIN 81 MG TABLET EC PO SCH (08:50)
[2019-08-24] MEDS: SENNA/DOCUSATE TABLET PO SCH (08:51)
[2019-08-24] MEDS: TICAGRELOR 90 MG TABLET PO SCH ×2 (08:53→20:21)
[2019-08-24] MEDS: GABAPENTIN 100 MG CAPSULE PO PRN ×2 (08:53→20:21)
[2019-08-24] MEDS: PANTOPROZOLE 40MG TABLET PO SCH (08:53)
[2019-08-24] MEDS: LISINOPRIL 10 MG TABLET PO SCH ×2 (08:54→20:21)
--- NOTE | 2019-08-24 10:59 | NUR ---
AT BEDSIDE. PROVIDED TOILETRIES FOR PT
--- NOTE | 2019-08-24 11:13 | NUR ---
PT PROVIDED INCENTIVE SPIROMETER AND USES IT EFFICIENTLY
[2019-08-24 12:24] LABS: BASOPHILS # (AUTO) 0.17 x10^3/uL (0-0.1); BASOPHILS % (AUTO) 2 % (0-1); EOSINOPHILS # (AUTO) 0.41 x10^3/uL (0-0.4); EOSINOPHILS % (AUTO) 6 % (1-7); LYMPHOCYTES # (AUTO) 1.75 x10^3/uL (1-3.4); LYMPHOCYTES % (AUTO) 24 % (22-44); MD NO; MEAN CORPUSCULAR HEMOGLOBIN 30.7 pg (27.5-34.5); MEAN CORPUSCULAR HGB CONC 32.6 g/dL (33.2-36.2); MEAN CORPUSCULAR VOLUME 94.1 fL (81-97); MEAN PLATELET VOLUME 8.1 fL (7.4-10.4); MONOCYTES # (AUTO) 1.02 x10^3/uL (0.2-0.8); MONOCYTES % (AUTO) 14 % (2-9); NEUTROPHILS # (AUTO) 3.97 x10^3/uL (1.8-6.8); NEUTROPHILS % (AUTO) 54 % (42-75); PLATELET COUNT 266 x10^3/uL (130-400); RED BLOOD COUNT 3.76 x10^6/uL (4.38-5.82); RED CELL DISTRIBUTION WIDTH 16.8 % (9.4-14.8)
--- NOTE | 2019-08-24 12:53 | NUR ---
PROVIDED LUNCH PITA Addendum: 08/24/19 at 1253 by WARNER PROVIDED LUNCH PITA
--- NOTE | 2019-08-24 13:36 | NUR ---
PATIENT RESTING IN BED
--- NOTE | 2019-08-24 14:08 | NUR ---
REPORT TO JANELLE. URBAN TO BE TRANSPORTED TO THE FLOOR.
[2019-08-24] MEDS ORDERED: LISI10TA2 PO (14:52)
[2019-08-24 14:56] VITALS: BP 190/74
[2019-08-24] MEDS ORDERED: hydrALAzine 20 MG/ML, 1ML IVPush PRN (15:30)
[2019-08-24] MEDS ORDERED: LABETALOL 5MG/ML, 20ML IVPush PRN (15:30)
[2019-08-24] MEDS ORDERED: SODIUM CHLORIDE 0.9% 1,000 ML IV SCH (17:30)
[2019-08-24] MEDS ORDERED: POLYETHYLENE GLYCOL 17 GM PACKET NG ONE (17:30)
[2019-08-24] MEDS ORDERED: POLYETHYLENE GLYCOL 17 GM PACKET PO ONE (18:00)
[2019-08-24 19:19] VITALS: BP 192/87
[2019-08-24] MEDS: BISACODYL 10 MG SUPP PR SCH (20:00)
[2019-08-24] MEDS: ATORVASTATIN 40 MG TABLET PO SCH (20:21)
[2019-08-24] MEDS: MELATONIN 5 MG TABLET PO PRN (20:21)
[2019-08-24 20:30] VITALS: BP 165/80
[2019-08-25 00:35] VITALS: BP 162/72
[2019-08-25] MEDS: CARVEDILOL 3.125 MG TABLET PO SCH (06:22)
[2019-08-25] MEDS: BISACODYL 10 MG SUPP PR SCH (08:11)
[2019-08-25] MEDS: CEFTRIAXONE PMX 1GM/50ML 50 ML IV SCH (08:11)
[2019-08-25] MEDS: TICAGRELOR 90 MG TABLET PO SCH ×2 (08:19→20:35)
[2019-08-25] MEDS: ASPIRIN 81 MG TABLET EC PO SCH (08:19)
[2019-08-25] MEDS: SENNA/DOCUSATE TABLET PO SCH (08:20)
[2019-08-25] MEDS: PANTOPROZOLE 40MG TABLET PO SCH (08:20)
[2019-08-25] MEDS: LISINOPRIL 10 MG TABLET PO SCH ×2 (08:20→20:35)
[2019-08-25 08:49] VITALS: BP 157/73
[2019-08-25] MEDS: GABAPENTIN 100 MG CAPSULE PO PRN ×2 (11:42→20:35)
[2019-08-25 15:00] VITALS: BP 162/69
[2019-08-25] MEDS: ENOXAPARIN 40 MG/0.4 ML SQ SCH (15:06)
[2019-08-25] MEDS ORDERED: LIDODERM 5% PATCH TD PRN (16:00)
[2019-08-25 20:00] VITALS: BP 188/80
[2019-08-25] MEDS: ATORVASTATIN 40 MG TABLET PO SCH (20:35)
[2019-08-25] MEDS: MELATONIN 5 MG TABLET PO PRN (20:35)
[2019-08-25 21:16] VITALS: BP 136/62
[2019-08-26 02:01] VITALS: BP 128/60
[2019-08-26] MEDS ORDERED: LIDODERM REMOVE PATCH NOTE XX SCH (04:00)
[2019-08-26 05:10] LABS: BASOPHILS # (AUTO) 0.07 x10^3/uL (0-0.1); BASOPHILS % (AUTO) 1 % (0-1); EOSINOPHILS # (AUTO) 0.39 x10^3/uL (0-0.4); EOSINOPHILS % (AUTO) 6 % (1-7); LYMPHOCYTES # (AUTO) 1.48 x10^3/uL (1-3.4); LYMPHOCYTES % (AUTO) 22 % (22-44); MD NO; MEAN CORPUSCULAR HEMOGLOBIN 30.3 pg (27.5-34.5); MEAN CORPUSCULAR HGB CONC 32.5 g/dL (33.2-36.2); MEAN CORPUSCULAR VOLUME 93.2 fL (81-97); MEAN PLATELET VOLUME 7.8 fL (7.4-10.4); MONOCYTES # (AUTO) 1.02 x10^3/uL (0.2-0.8); MONOCYTES % (AUTO) 15 % (2-9); NEUTROPHILS % (AUTO) 56 % (42-75); PLATELET COUNT 224 x10^3/uL (130-400); RED BLOOD COUNT 3.68 x10^6/uL (4.38-5.82); RED CELL DISTRIBUTION WIDTH 15.8 % (9.4-14.8)
[2019-08-26 05:15] LABS: CALCIUM 8.7 mg/dL (8.5-10.1); CHLORIDE 104 mmol/L (98-107)
[2019-08-26 05:19] LABS: ANION GAP 10 mmol/L (5-15); CREATININE 1.01 mg/dL (0.7-1.3)
[2019-08-26] MEDS: CARVEDILOL 3.125 MG TABLET PO SCH (05:57)
[2019-08-26 07:24] VITALS: BP 120/64
[2019-08-26] MEDS: PANTOPROZOLE 40MG TABLET PO SCH (07:55)
[2019-08-26] MEDS: LISINOPRIL 10 MG TABLET PO SCH (07:55)
[2019-08-26] MEDS: TICAGRELOR 90 MG TABLET PO SCH (07:55)
[2019-08-26] MEDS: SENNA/DOCUSATE TABLET PO SCH (07:55)
[2019-08-26] MEDS: ASPIRIN 81 MG TABLET EC PO SCH (07:55)
[2019-08-26] MEDS: BISACODYL 10 MG SUPP PR SCH (07:59)
[2019-08-26] MEDS ORDERED: BISACODYL 5 MG EC TABLET PO SCH (09:00)
[2019-08-26 13:30] VITALS: BP 104/64
[2019-08-26] MEDS ORDERED: SENN-193 PO (14:58)
[2019-08-26] MEDS: ENOXAPARIN 40 MG/0.4 ML SQ SCH (15:00)
[2019-08-26] MEDS ORDERED: TICA90TA PO (15:17)
== END 2019-08-26 16:15 | disposition home or self-care (01) ==
LOC: ED 19:38 → EDIP 21:23 → INTOOBSV 21:23 → 3N 08-24 14:33
PROVIDERS: ADMIT Family Medicine; ATTEND Hospitalist
DX: K59.00 Constipation, unspecified (principal); R10.30 Lower abdominal pain, unspecified; E87.1 Hypo-osmolality and hyponatremia; J18.1 Lobar pneumonia, unspecified organism; M16.12 Unilateral primary osteoarthritis, left hip; I25.10 Atherosclerotic heart disease of native coronary artery without angina pectoris; I11.0 Hypertensive heart disease with heart failure; D64.9 Anemia, unspecified; K21.9 Gastro-esophageal reflux disease without esophagitis; I50.30 Unspecified diastolic (congestive) heart failure; I44.0 Atrioventricular block, first degree; Z95.5 Presence of coronary angioplasty implant and graft
CPT/HCPCS: 36415; 73523; 74177; 80048; 80053; 81001; 83690; 83735; 84145; 85025; 87040; 96365; 96366; 96367; 96368; 96372; 97162; 97166; 99285; G0378; J0295; J0456; J0696; J1650; J7030; J7050; Q9967

== ENCOUNTER 2019-08-28 17:49 | Emergency (ER) | payer MEDICARE ==
[~2019-08-28] VITALS: Ht 177.8 cm; Wt 66.0 kg
[~2019-08-28 17:49] MED LIST changes: +LISI10TA2 PO; +SENN-193 PO
[2019-08-28] MEDS ORDERED: HYDROcodone/APAP 5/325 TABLET ONE (18:25)
[2019-08-28] MEDS ORDERED: NYSTATIN CRM 15GM TP SCH (18:30)
[2019-08-28] MEDS ORDERED: HYDROcodone/APAP 5/325 TABLET PO ONE (18:30)
--- NOTE | 2019-08-28 18:40 | NUR ---
REQ FOR NYSTATIN SENT TO LAB
--- NOTE | 2019-08-28 18:57 | NUR ---
received report from NINA Bliss.
--- NOTE | 2019-08-28 19:51 | NUR ---
nyastatin cream applied to groin area. discharged with prescriptions and instruction. verbalized understanding. wheeled to discharge area.
[2019-08-28 19:53] VITALS: BP 125/83
== END 2019-08-28 19:54 | disposition home or self-care (01) ==
LOC: ED 18:03
DX: B37.89 Other sites of candidiasis (principal); I11.0 Hypertensive heart disease with heart failure; I50.9 Heart failure, unspecified; K21.9 Gastro-esophageal reflux disease without esophagitis; I25.2 Old myocardial infarction
CPT/HCPCS: 99283

== ENCOUNTER 2019-09-02 17:24 | Emergency (ER) | payer MEDICARE ==
[~2019-09-02] VITALS: Ht 177.8 cm; Wt 66.4 kg
[2019-09-02 18:18] LABS: BASOPHILS # (AUTO) 0.08 x10^3/uL (0-0.1); BASOPHILS % (AUTO) 1 % (0-1); EOSINOPHILS # (AUTO) 0.52 x10^3/uL (0-0.4); EOSINOPHILS % (AUTO) 7 % (1-7); LYMPHOCYTES # (AUTO) 1.52 x10^3/uL (1-3.4); LYMPHOCYTES % (AUTO) 21 % (22-44); MD NO; MEAN CORPUSCULAR HEMOGLOBIN 30.3 pg (27.5-34.5); MEAN CORPUSCULAR VOLUME 91.6 fL (81-97); MEAN PLATELET VOLUME 7.8 fL (7.4-10.4); MONOCYTES # (AUTO) 0.98 x10^3/uL (0.2-0.8); MONOCYTES % (AUTO) 14 % (2-9); NEUTROPHILS # (AUTO) 4.16 x10^3/uL (1.8-6.8); NEUTROPHILS % (AUTO) 57 % (42-75); PLATELET COUNT 270 x10^3/uL (130-400); RED BLOOD COUNT 3.77 x10^6/uL (4.38-5.82); RED CELL DISTRIBUTION WIDTH 15.8 % (9.4-14.8)
[2019-09-02 18:32] LABS: ANION GAP 8 mmol/L (5-15); CALCIUM 8.1 mg/dL (8.5-10.1); CHLORIDE 103 mmol/L (98-107); CREATININE 1.28 mg/dL (0.7-1.3)
--- NOTE | 2019-09-02 20:57 | NUR ---
PT TO ROOM FROM LOBBY VIA WHEELCHAIR
--- NOTE | 2019-09-02 21:28 | NUR ---
RN to bedside, patient reports junaid red blood tinging his stool. Patient is alert, skin is warm pink and dry. No signs signs or symptoms of emergent gi bleed. Patient reports no tarry stool. patient attached to blood pressure cuff and pulsatile oxygen. All within normal limits. Awaiting recheck.
--- NOTE | 2019-09-02 21:34 | NUR ---
Note joannaone in EDM - 09/02/19 at 2152 by RHIANNON Provider at bedside, new orders placed. RN to bedside, started IV per protocol and updated vital signs (see Vital signs flowsheet) Antiemetic medications given and intravenous fluids started. patient also provided with warm blanket. Aware of need for rest. Awaiting completion of fluids.
--- NOTE | 2019-09-02 22:07 | NUR ---
Assumed care of pt. Patient is resting comfortably in bed. Vital Signs within normal limits.
[2019-09-02 22:28] VITALS: BP 149/65
== END 2019-09-02 22:29 | disposition home or self-care (01) ==
LOC: ED 22:23
DX: K62.5 Hemorrhage of anus and rectum (principal); I10 Essential (primary) hypertension; I25.2 Old myocardial infarction; K21.9 Gastro-esophageal reflux disease without esophagitis; Z90.49 Acquired absence of other specified parts of digestive tract; Z90.89 Acquired absence of other organs
CPT/HCPCS: 36415; 80048; 85025; 99283

== ENCOUNTER 2019-09-06 16:40 | Emergency (ER) | payer MEDICARE ==
[~2019-09-06] VITALS: Ht 175.3 cm; Wt 70.0 kg
[2019-09-06 17:52] LABS: BASOPHILS # (AUTO) 0.03 x10^3/uL (0-0.1); BASOPHILS % (AUTO) 1 % (0-1); EOSINOPHILS # (AUTO) 0.33 x10^3/uL (0-0.4); EOSINOPHILS % (AUTO) 5 % (1-7); LYMPHOCYTES # (AUTO) 1.24 x10^3/uL (1-3.4); LYMPHOCYTES % (AUTO) 19 % (22-44); MD NO; MEAN CORPUSCULAR HEMOGLOBIN 30.1 pg (27.5-34.5); MEAN CORPUSCULAR HGB CONC 32.8 g/dL (33.2-36.2); MEAN CORPUSCULAR VOLUME 91.8 fL (81-97); MEAN PLATELET VOLUME 7.8 fL (7.4-10.4); MONOCYTES # (AUTO) 1.03 x10^3/uL (0.2-0.8); MONOCYTES % (AUTO) 16 % (2-9); NEUTROPHILS # (AUTO) 4.05 x10^3/uL (1.8-6.8); NEUTROPHILS % (AUTO) 61 % (42-75); PLATELET COUNT 252 x10^3/uL (130-400)
[2019-09-06 18:06] LABS: ALANINE AMINOTRANSFERASE 30 U/L (12-78); ALBUMIN 3.1 g/dL (3.4-5.0); ANION GAP 5 mmol/L (5-15); CALCIUM 8.1 mg/dL (8.5-10.1); CHLORIDE 104 mmol/L (98-107)
[2019-09-06 18:10] LABS: ALKALINE PHOSPHATASE 105 U/L (45-117); BILIRUBIN,TOTAL 0.4 mg/dL (0.2-1.0); TOTAL PROTEIN 6.5 g/dL (6.4-8.2); TROPONIN I 0.015 ng/mL (0.000-0.045)
[2019-09-06 19:05] LABS: MICROSCOPIC NOT IND
[2019-09-06 19:08] LABS: CULTURE INDICATED? NO
[2019-09-06 20:34] VITALS: BP 182/78
== END 2019-09-06 20:36 | disposition home or self-care (01) ==
LOC: ED 17:38
DX: R42 Dizziness and giddiness (principal); R55 Syncope and collapse; R53.1 Weakness; I10 Essential (primary) hypertension; I25.10 Atherosclerotic heart disease of native coronary artery without angina pectoris; K21.9 Gastro-esophageal reflux disease without esophagitis; I25.2 Old myocardial infarction; Z90.89 Acquired absence of other organs; Z90.49 Acquired absence of other specified parts of digestive tract
CPT/HCPCS: 36415; 80053; 81003; 83605; 84484; 85025; 87040; 93005; 99284

== ENCOUNTER 2019-09-07 16:46 | Emergency (ER) | payer MEDICARE ==
[~2019-09-07] VITALS: Ht 180.3 cm; Wt 69.5 kg
[2019-09-07 16:55] VITALS: BP 111/62
[2019-09-07 17:25] LABS: BASOPHILS # (AUTO) 0.08 x10^3/uL (0-0.1); BASOPHILS % (AUTO) 1 % (0-1); EOSINOPHILS # (AUTO) 0.56 x10^3/uL (0-0.4); EOSINOPHILS % (AUTO) 6 % (1-7); LYMPHOCYTES # (AUTO) 1.97 x10^3/uL (1-3.4); LYMPHOCYTES % (AUTO) 22 % (22-44); MD NO; MEAN CORPUSCULAR HGB CONC 32.5 g/dL (33.2-36.2); MEAN CORPUSCULAR VOLUME 92.1 fL (81-97); MEAN PLATELET VOLUME 7.6 fL (7.4-10.4); MONOCYTES % (AUTO) 16 % (2-9); NEUTROPHILS # (AUTO) 4.87 x10^3/uL (1.8-6.8); NEUTROPHILS % (AUTO) 55 % (42-75); PLATELET COUNT 290 x10^3/uL (130-400); RED BLOOD COUNT 3.73 x10^6/uL (4.38-5.82); RED CELL DISTRIBUTION WIDTH 15.9 % (9.4-14.8)
[2019-09-07 17:33] LABS: ALANINE AMINOTRANSFERASE 27 U/L (12-78); ALBUMIN 3.3 g/dL (3.4-5.0); ANION GAP 7 mmol/L (5-15); CALCIUM 8.4 mg/dL (8.5-10.1); CHLORIDE 100 mmol/L (98-107); CREATININE 1.23 mg/dL (0.7-1.3)
[2019-09-07 17:35] LABS: ALKALINE PHOSPHATASE 103 U/L (45-117); BILIRUBIN,TOTAL 0.6 mg/dL (0.2-1.0)
[2019-09-07 17:52] LABS: MICROSCOPIC AUTO
[2019-09-07 17:55] LABS: CULTURE INDICATED? NO
--- NOTE | 2019-09-07 18:06 | NUR ---
SUPERVISOR SHIP MAINTENANCE SERVICES: PT TO ROOM FROM LOBBY VIA W/C
[2019-09-07] MEDS ORDERED: ACETAMINOPHEN 500 MG TABLET ONE (18:45)
[2019-09-07] MEDS ORDERED: ONDANSETRON 2MG/ML, 2ML ONE (18:45)
[2019-09-07] MEDS ORDERED: ACETAMINOPHEN 500 MG TABLET PO ONE (19:00)
[2019-09-07] MEDS ORDERED: ONDANSETRON 2MG/ML, 2ML IVPush ONE (19:00)
[2019-09-07] MEDS ORDERED: OMNIPAQUE 350 MG/ML, 100ML BOTTLE ONE (23:39)
== END 2019-09-07 20:47 | disposition home or self-care (01) ==
LOC: ED 18:18
DX: K59.00 Constipation, unspecified (principal); R10.32 Left lower quadrant pain; I10 Essential (primary) hypertension; K21.9 Gastro-esophageal reflux disease without esophagitis; I25.10 Atherosclerotic heart disease of native coronary artery without angina pectoris; I25.2 Old myocardial infarction; Z90.89 Acquired absence of other organs; Z90.49 Acquired absence of other specified parts of digestive tract
CPT/HCPCS: 36415; 74177; 80053; 81001; 83690; 85025; 96374; 99284; J2405; Q9967

== ENCOUNTER 2019-09-09 16:30 | Emergency (ER) | payer MEDICARE ==
[~2019-09-09] VITALS: Ht 167.6 cm; Wt 72.5 kg
[2019-09-09 17:27] LABS: BASOPHILS # (AUTO) 0.06 x10^3/uL (0-0.1); BASOPHILS % (AUTO) 1 % (0-1); EOSINOPHILS # (AUTO) 0.58 x10^3/uL (0-0.4); EOSINOPHILS % (AUTO) 8 % (1-7); LYMPHOCYTES # (AUTO) 1.47 x10^3/uL (1-3.4); LYMPHOCYTES % (AUTO) 19 % (22-44); MD NO; MEAN CORPUSCULAR HEMOGLOBIN 30.1 pg (27.5-34.5); MEAN CORPUSCULAR HGB CONC 32.7 g/dL (33.2-36.2); MEAN CORPUSCULAR VOLUME 92.1 fL (81-97); MEAN PLATELET VOLUME 7.8 fL (7.4-10.4); MONOCYTES # (AUTO) 1.27 x10^3/uL (0.2-0.8); MONOCYTES % (AUTO) 17 % (2-9); NEUTROPHILS % (AUTO) 56 % (42-75); PLATELET COUNT 262 x10^3/uL (130-400); RED BLOOD COUNT 3.77 x10^6/uL (4.38-5.82); RED CELL DISTRIBUTION WIDTH 15.7 % (9.4-14.8)
[2019-09-09 17:34] LABS: ALBUMIN 3.4 g/dL (3.4-5.0); ANION GAP 10 mmol/L (5-15); CALCIUM 8.3 mg/dL (8.5-10.1); CHLORIDE 101 mmol/L (98-107); CREATININE 1.35 mg/dL (0.7-1.3)
--- NOTE | 2019-09-09 19:18 | NUR ---
pt to room from lobby
--- NOTE | 2019-09-09 19:34 | NUR ---
PT SITTING ON GURNEY WITH FAMILY AT . PT SPOUSE REPORTS "I GAVE HIM A GABAPENTIN FOR ANXIETY AND HE STARTED ACTING OUT AN HOUR LATER, I THINK HE IS HAVING A REACTION." SPOUSE REPORTS PT HAS BEEN "ACTING OUT" EVERY NIGHT IN THE EVENINGS. MONITORING APPLIED, CALL LIGHT WITHIN REACH. ALL SAFETY MEASURES IN PLACE.
[2019-09-09 20:16] VITALS: BP 168/67
== END 2019-09-09 20:18 | disposition home or self-care (01) ==
LOC: ED 20:14
DX: R41.82 Altered mental status, unspecified (principal); R42 Dizziness and giddiness; I10 Essential (primary) hypertension; I25.2 Old myocardial infarction; I25.10 Atherosclerotic heart disease of native coronary artery without angina pectoris; E87.1 Hypo-osmolality and hyponatremia; Z90.89 Acquired absence of other organs; Z90.49 Acquired absence of other specified parts of digestive tract
CPT/HCPCS: 36415; 80048; 82040; 85025; 93005; 99284

== ENCOUNTER 2019-09-18 16:52 | Emergency (ER) | payer MEDICARE ==
[~2019-09-18] VITALS: Ht 177.8 cm; Wt 72.9 kg
--- NOTE | 2019-09-18 19:39 | NUR ---
PT AMBULATORY TO ED ROOM 4 FROM CINDA, GAIT STEADY USING WALKER
[2019-09-18] MEDS ORDERED: ATOR40TA78 PO (19:42)
--- NOTE | 2019-09-18 19:49 | NUR ---
PT'S SPOUSE IN ROOM. STATES PT "HAD STENT PLACED IN JULY AND THIS IS THE 13TH TIME WE'VE BEEN HERE" SPOUSE THINKS SX ARE R/T CARVEDILOL; THEY HAVE NOT SPOKEN TO PRESCRIBER ABOUT PT'S PROBLEMS. SPOUSE STATES SHE GIVES PT CARVEDILOL AT LUNCH TIME AND "EVERY DAY AT THE SAME TIME HE GETS THE SAME SYMPTOMS - ANGINA ON THE CHEST, DIZZINESS, DEPRESSION, ANXIETY" PT CURRENTLY DENYING DIZZINESS, DOUBLE VISION. CARDIAC & VS MONITORING IN PLACE.
--- NOTE | 2019-09-18 20:45 | NUR ---
TASK RN: D/C INSTRUCIONS PROVIDED TO PT. AND . THEY VERBALIZED UNDERSTANDING OF IMPORTANCE OF F/U WITH PRIMARY MD. PT. ASSISTED TO DRESS BY . PT. AMBULATORY TO D/C DESK WITH WALKER. NO DISTRESS NOTED.
[2019-09-18 20:46] VITALS: BP 129/43
== END 2019-09-18 20:48 | disposition home or self-care (01) ==
LOC: ED 20:42
DX: R55 Syncope and collapse (principal); H53.2 Diplopia; I10 Essential (primary) hypertension; I25.10 Atherosclerotic heart disease of native coronary artery without angina pectoris; I25.2 Old myocardial infarction; R07.9 Chest pain, unspecified; Z90.49 Acquired absence of other specified parts of digestive tract; Z87.01 Personal history of pneumonia (recurrent)
CPT/HCPCS: 93005; 99283

== ENCOUNTER 2019-09-22 11:24 | Inpatient (IN) | payer MEDICARE ==
[~2019-09-22] VITALS: Ht 177.8 cm; Wt 72.1 kg
[~2019-09-22 11:24] MED LIST changes: +ATOR40TA78 PO
--- NOTE | 2019-09-22 12:00 | NUR ---
REPORT RECEIVED FROM ALICIA WOOD. ASSUMING CARE AT THIS TIME.
[2019-09-22 12:29] LABS: BASOPHILS # (AUTO) 0.08 x10^3/uL (0-0.1); BASOPHILS % (AUTO) 1 % (0-1); EOSINOPHILS % (AUTO) 8 % (1-7); LYMPHOCYTES # (AUTO) 0.84 x10^3/uL (1-3.4); LYMPHOCYTES % (AUTO) 12 % (22-44); MD NO; MEAN CORPUSCULAR HEMOGLOBIN 30.2 pg (27.5-34.5); MEAN CORPUSCULAR HGB CONC 32.7 g/dL (33.2-36.2); MEAN CORPUSCULAR VOLUME 92.4 fL (81-97); MEAN PLATELET VOLUME 7.6 fL (7.4-10.4); MONOCYTES # (AUTO) 0.97 x10^3/uL (0.2-0.8); MONOCYTES % (AUTO) 13 % (2-9); NEUTROPHILS # (AUTO) 4.82 x10^3/uL (1.8-6.8); NEUTROPHILS % (AUTO) 66 % (42-75); PLATELET COUNT 232 x10^3/uL (130-400); RED BLOOD COUNT 3.57 x10^6/uL (4.38-5.82); RED CELL DISTRIBUTION WIDTH 15.5 % (9.4-14.8)
[2019-09-22] MEDS ORDERED: SODIUM CHLORIDE FLUSH 10ML SYR IVF ONE (12:30)
--- NOTE | 2019-09-22 12:37 | NUR ---
REPORT TO NINA LUGO WHO ASSUMED CARE OF PT.
[2019-09-22 12:39] LABS: ALANINE AMINOTRANSFERASE 17 U/L (12-78); ALBUMIN 2.8 g/dL (3.4-5.0); ANION GAP 6 mmol/L (5-15); CALCIUM 8.4 mg/dL (8.5-10.1); CHLORIDE 105 mmol/L (98-107); CREATININE 1.33 mg/dL (0.7-1.3)
[2019-09-22 12:44] LABS: ALKALINE PHOSPHATASE 107 U/L (45-117); BILIRUBIN,TOTAL 0.9 mg/dL (0.2-1.0); TROPONIN I < 0.015 ng/mL (0.000-0.045)
--- NOTE | 2019-09-22 12:57 | NUR ---
PT PROVIDED SMALL URINE SAMPLE. UA COLLECTED AND TAKEN TO LAB.
--- NOTE | 2019-09-22 13:03 | NUR ---
PT RESTING COMFORTABLY ON GURNEY. VINCE. SPOUSE AT BEDSIDE.
[2019-09-22 13:14] LABS: MICROSCOPIC NOT IND
[2019-09-22 13:23] LABS: CULTURE INDICATED? NO
--- NOTE | 2019-09-22 13:27 | NUR ---
ALL RESULTS ARE BACK AT THIS TIME. CHART UP FOR RECHECK.
--- NOTE | 2019-09-22 13:48 | NUR ---
IV START. 2 SETS BLOOD CX DRAWN.
[2019-09-22] MEDS ORDERED: CEFTRIAXONE PMX 1GM/50ML 50 ML ONE (13:51)
--- NOTE | 2019-09-22 13:58 | NUR ---
IV ABX STARTED PER NOV. BLOOD CX ALREADY COLLECTED. HOSPITAL BED REQUESTED. SPOUSE WENT HOME AND WILL BE BACK IN A COUPLE HOURS.
[2019-09-22] MEDS ORDERED: AZITHROMYCIN 500 MG in SODIUM CHLORIDE 0.9% 250 ML IVPB ONE (14:00)
[2019-09-22] MEDS ORDERED: CEFTRIAXONE PMX 1GM/50ML 50 ML IVPB ONE (14:00)
[2019-09-22] MEDS ORDERED: SODIUM CHLORIDE FLUSH 10ML SYR IVF PRN (14:00)
--- NOTE | 2019-09-22 14:21 | NUR ---
PT AMBULATED TO RESTROOM WITH CGA X1 ASSIST. PT STATES SM BM. PT PLACED ON HOSPITAL BED.
[2019-09-22] MEDS ORDERED: ONDANSETRON 2MG/ML, 2ML IVPush PRN (15:00)
[2019-09-22] MEDS: CEFTRIAXONE PMX 1GM/50ML 50 ML IV SCH (15:00)
[2019-09-22] MEDS: AZITHROMYCIN 500 MG in SODIUM CHLORIDE 0.9% 250 ML IV SCH (15:00)
[2019-09-22] MEDS ORDERED: ASPIRIN 81 MG TABLET CHEW PO ONE (15:00)
[2019-09-22] MEDS: HEPARIN 5,000 UNITS/ML, 1ML SQ SCH ×2 (15:00→23:05)
[2019-09-22] MEDS ORDERED: METHOCARBAMOL 500 MG TABLET PO PRN (15:00)
[2019-09-22] MEDS ORDERED: GABAPENTIN 100 MG CAPSULE PO PRN (15:00)
[2019-09-22] MEDS ORDERED: morphine SULFATE 10 MG/ML, 1ML IVPush PRN (15:00)
[2019-09-22] MEDS ORDERED: hydrALAzine 20 MG/ML, 1ML IVPush PRN (15:00)
[2019-09-22] MEDS ORDERED: LISINOPRIL 10 MG TABLET PO PRN (15:00)
[2019-09-22] MEDS ORDERED: LABETALOL 5MG/ML, 20ML IVPush PRN (15:00)
[2019-09-22] MEDS ORDERED: PROMETHAZINE 25 MG/ML, 1ML IM PRN (15:00)
[2019-09-22] MEDS ORDERED: ASPIRIN 81 MG TABLET CHEW ONE (15:21)
[2019-09-22] MEDS ORDERED: HEPARIN 5,000 UNITS/ML, 1ML ONE (15:21)
[2019-09-22 15:29] LABS: TROPONIN I < 0.015 ng/mL (0.000-0.045)
[2019-09-22] MEDS ORDERED: SODIUM CHLORIDE 0.9% 1,000 ML IV SCH (15:30)
--- NOTE | 2019-09-22 15:53 | NUR ---
REPORT GIVEN TO IDA WOOD
[2019-09-22 16:32] VITALS: BP 162/76
[2019-09-22] MEDS ORDERED: LIDODERM 5% PATCH TD PRN (17:30)
[2019-09-22 19:26] LABS: RAPID INFLUENZA A Negative (Negative); RAPID INFLUENZA B Negative (Negative)
[2019-09-22] MEDS: MELATONIN 5 MG TABLET PO PRN (20:40)
[2019-09-22] MEDS: ATORVASTATIN 40 MG TABLET PO SCH (20:40)
[2019-09-22] MEDS: MIRTAZAPINE 15 MG TABLET PO SCH (20:40)
[2019-09-22] MEDS: ACETAMINOPHEN 325 MG TABLET PO PRN (20:40)
[2019-09-22] MEDS: TICAGRELOR 90 MG TABLET PO SCH (20:40)
[2019-09-22 21:20] LABS: TROPONIN I < 0.015 ng/mL (0.000-0.045)
[2019-09-22 21:27] VITALS: BP 125/68
[2019-09-23] MEDS: SODIUM CHLORIDE 0.9% 1,000 ML IV SCH (01:57)
[2019-09-23] MEDS: ACETAMINOPHEN 325 MG TABLET PO PRN ×3 (01:57→20:00)
[2019-09-23 03:25] VITALS: BP 163/63
[2019-09-23 04:04] LABS: TROPONIN I < 0.015 ng/mL (0.000-0.045)
[2019-09-23] MEDS: CARVEDILOL 3.125 MG TABLET PO SCH (06:11)
[2019-09-23 06:29] LABS: ALANINE AMINOTRANSFERASE 13 U/L (12-78); ALBUMIN 2.7 g/dL (3.4-5.0); ANION GAP 8 mmol/L (5-15); CALCIUM 7.9 mg/dL (8.5-10.1); CHLORIDE 106 mmol/L (98-107); CREATININE 1.15 mg/dL (0.7-1.3)
[2019-09-23 06:30] LABS: BASOPHILS # (AUTO) 0.04 x10^3/uL (0-0.1); BASOPHILS % (AUTO) 1 % (0-1); EOSINOPHILS # (AUTO) 0.71 x10^3/uL (0-0.4); EOSINOPHILS % (AUTO) 11 % (1-7); LYMPHOCYTES # (AUTO) 1.17 x10^3/uL (1-3.4); LYMPHOCYTES % (AUTO) 17 % (22-44); MD NO; MEAN CORPUSCULAR HGB CONC 32.9 g/dL (33.2-36.2); MEAN CORPUSCULAR VOLUME 91.1 fL (81-97); MEAN PLATELET VOLUME 7.8 fL (7.4-10.4); MONOCYTES # (AUTO) 0.96 x10^3/uL (0.2-0.8); MONOCYTES % (AUTO) 14 % (2-9); NEUTROPHILS # (AUTO) 3.92 x10^3/uL (1.8-6.8); NEUTROPHILS % (AUTO) 58 % (42-75); PLATELET COUNT 221 x10^3/uL (130-400); RED BLOOD COUNT 3.59 x10^6/uL (4.38-5.82); RED CELL DISTRIBUTION WIDTH 15.3 % (9.4-14.8)
[2019-09-23 06:31] LABS: ALKALINE PHOSPHATASE 110 U/L (45-117); BILIRUBIN,TOTAL 0.6 mg/dL (0.2-1.0); TOTAL PROTEIN 5.9 g/dL (6.4-8.2)
[2019-09-23 06:38] VITALS: BP 173/69
[2019-09-23] MEDS: ASPIRIN 81 MG TABLET EC PO SCH (07:57)
[2019-09-23] MEDS: HEPARIN 5,000 UNITS/ML, 1ML SQ SCH ×2 (07:57→16:20)
[2019-09-23] MEDS: PANTOPROZOLE 40MG TABLET PO SCH (07:57)
[2019-09-23] MEDS: TICAGRELOR 90 MG TABLET PO SCH ×2 (07:57→20:01)
[2019-09-23] MEDS: SENNA/DOCUSATE TABLET PO SCH (07:57)
[2019-09-23 09:23] VITALS: BP 166/81
[2019-09-23] MEDS: LISINOPRIL 10 MG TABLET PO SCH ×2 (09:57→20:00)
[2019-09-23 12:18] VITALS: BP 146/58
[2019-09-23] MEDS: CEFTRIAXONE PMX 1GM/50ML 50 ML IV SCH (15:23)
[2019-09-23] MEDS ORDERED: SODIUM CHLORIDE 0.9% 1,000 ML IV SCH (15:56)
[2019-09-23] MEDS: AZITHROMYCIN 500 MG in SODIUM CHLORIDE 0.9% 250 ML IV SCH (16:21)
[2019-09-23 19:55] VITALS: BP_SYST 186; BP_SYST 193; BP_DIAS 70; BP_DIAS 72
[2019-09-23] MEDS: MELATONIN 5 MG TABLET PO PRN (20:00)
[2019-09-23] MEDS: ATORVASTATIN 40 MG TABLET PO SCH (20:00)
[2019-09-23] MEDS: MIRTAZAPINE 15 MG TABLET PO SCH (20:01)
[2019-09-24] VITALS (7 sets, daily range): BP systolic 119–195; BP diastolic 62–77
[2019-09-24] MEDS: HEPARIN 5,000 UNITS/ML, 1ML SQ SCH ×3 (00:57→20:19)
[2019-09-24] MEDS: CARVEDILOL 3.125 MG TABLET PO SCH (05:33)
[2019-09-24] MEDS: ASPIRIN 81 MG TABLET EC PO SCH (07:20)
[2019-09-24] MEDS: SENNA/DOCUSATE TABLET PO SCH (07:20)
[2019-09-24] MEDS: PANTOPROZOLE 40MG TABLET PO SCH (07:20)
[2019-09-24] MEDS: TICAGRELOR 90 MG TABLET PO SCH ×2 (07:20→20:19)
[2019-09-24] MEDS: LISINOPRIL 10 MG TABLET PO SCH (07:20)
[2019-09-24] MEDS ORDERED: REGADENOSON 0.4 MG/5 ML SYRINGE ONE (09:15)
[2019-09-24] MEDS: LISINOPRIL 20 MG TABLET PO SCH ×2 (11:07→20:18)
[2019-09-24] MEDS ORDERED: NITROGLYCERIN SINGLE TAB 0.4 MG SL PRN (12:30)
[2019-09-24] MEDS ORDERED: LIDO700A20 TD (14:13)
[2019-09-24] MEDS ORDERED: DOXY100C2 PO (14:13)
[2019-09-24] MEDS ORDERED: LISI-170 PO (14:13)
[2019-09-24] MEDS ORDERED: NITR0.4T41 SL (14:13)
[2019-09-24] MEDS ORDERED: AMOX1TAB64 PO (14:13)
[2019-09-24] MEDS ORDERED: QUETIAPINE 25MG TABLET PO PRN (15:30)
[2019-09-24] MEDS ORDERED: PHARMACY INSTRUCTION MC PRN (15:30)
[2019-09-24] MEDS ORDERED: INSTRUCTION SEE COMMENTS XX PRN (15:30)
[2019-09-24] MEDS: CEFTRIAXONE PMX 1GM/50ML 50 ML IV SCH (15:48)
[2019-09-24] MEDS: AZITHROMYCIN 500 MG in SODIUM CHLORIDE 0.9% 250 ML IV SCH (16:28)
[2019-09-24] MEDS: ACETAMINOPHEN 325 MG TABLET PO PRN (18:27)
[2019-09-24] MEDS: MIRTAZAPINE 15 MG TABLET PO SCH (20:18)
[2019-09-24] MEDS: ATORVASTATIN 40 MG TABLET PO SCH (20:18)
[2019-09-24] MEDS ORDERED: MELATONIN 3 MG TABLET PO SCH (21:00)
[2019-09-25] MEDS: CARVEDILOL 3.125 MG TABLET PO SCH (06:30)
[2019-09-25] MEDS: HEPARIN 5,000 UNITS/ML, 1ML SQ SCH ×2 (06:30→13:53)
[2019-09-25 08:22] VITALS: BP 143/67
[2019-09-25] MEDS ORDERED: DOXYCYCLINE 100MG TABLET PO SCH (09:00)
[2019-09-25] MEDS ORDERED: AMOXICILLIN/CLAV 875-125MG TABLET PO SCH (09:00)
[2019-09-25] MEDS ORDERED: AMOXICILLIN/CLAV 875-125MG TABLET ONE (09:20)
[2019-09-25] MEDS ORDERED: DOXYCYCLINE 100MG CAP ONE (09:20)
[2019-09-25] MEDS: LISINOPRIL 20 MG TABLET PO SCH (09:28)
[2019-09-25] MEDS: ASPIRIN 81 MG TABLET EC PO SCH (09:28)
[2019-09-25] MEDS: PANTOPROZOLE 40MG TABLET PO SCH (09:28)
[2019-09-25] MEDS: SENNA/DOCUSATE TABLET PO SCH (09:29)
[2019-09-25] MEDS: TICAGRELOR 90 MG TABLET PO SCH (09:29)
[2019-09-25 14:20] VITALS: BP 146/69
== END 2019-09-25 16:10 | disposition home or self-care (01) | DRG 177 ==
LOC: ED 14:00 → EDIP 14:20 → 4WST 16:26
PROVIDERS: ADMIT Internal Medicine; ATTEND Internal Medicine
DX: J15.6 Pneumonia due to other Gram-negative bacteria (principal); G93.41 Metabolic encephalopathy; E87.1 Hypo-osmolality and hyponatremia; N17.9 Acute kidney failure, unspecified; J18.9 Pneumonia, unspecified organism; E86.1 Hypovolemia; Z88.8 Allergy status to other drugs, medicaments and biological substances; D64.9 Anemia, unspecified; E78.5 Hyperlipidemia, unspecified; F41.1 Generalized anxiety disorder; H91.90 Unspecified hearing loss, unspecified ear; I10 Essential (primary) hypertension; I25.10 Atherosclerotic heart disease of native coronary artery without angina pectoris; I25.2 Old myocardial infarction; Z95.5 Presence of coronary angioplasty implant and graft; Z96.651 Presence of right artificial knee joint; R07.89 Other chest pain; R73.9 Hyperglycemia, unspecified; K21.9 Gastro-esophageal reflux disease without esophagitis; Z90.49 Acquired absence of other specified parts of digestive tract
CPT/HCPCS: 36415; 70450; 71045; 71275; 78452; 80053; 81003; 83605; 83690; 83735; 84145; 84443; 84484; 85025; 85379; 87040; 87400; 93005; 93017; 93308; 93321; 93325; 96365; 96368; G0378; J0456; J0696; J1644; J2785; A9502; C9898; J0360; J7030; J7050

== ENCOUNTER 2019-10-22 17:01 | Emergency (ER) | payer MEDICARE ==
[~2019-10-22] VITALS: Ht 177.8 cm; Wt 73.1 kg
[~2019-10-22 17:01] MED LIST changes: +AMOX1TAB64 PO; +DOXY100C2 PO; +HYDR-2995 PO; -HYDR10TA4 PO; +LIDO700A20 TD; +LISI-170 PO; -MECL12.52 PO; +MECL12.581 PO; +NITR0.4T41 SL
[2019-10-22 17:02] VITALS: BP 148/62
[2019-10-22 18:06] LABS: BASOPHILS # (AUTO) 0.02 x10^3/uL (0-0.1); BASOPHILS % (AUTO) 0 % (0-1); EOSINOPHILS # (AUTO) 0.31 x10^3/uL (0-0.4); EOSINOPHILS % (AUTO) 4 % (1-7); LYMPHOCYTES # (AUTO) 1.29 x10^3/uL (1-3.4); LYMPHOCYTES % (AUTO) 16 % (22-44); MD NO; MEAN CORPUSCULAR HEMOGLOBIN 29.9 pg (27.5-34.5); MEAN CORPUSCULAR VOLUME 90.5 fL (81-97); MONOCYTES % (AUTO) 8 % (2-9); NEUTROPHILS # (AUTO) 5.94 x10^3/uL (1.8-6.8); NEUTROPHILS % (AUTO) 72 % (42-75); PLATELET COUNT 213 x10^3/uL (130-400); RED BLOOD COUNT 3.44 x10^6/uL (4.38-5.82); RED CELL DISTRIBUTION WIDTH 15.6 % (9.4-14.8)
[2019-10-22 18:12] LABS: ALANINE AMINOTRANSFERASE 19 U/L (12-78); ANION GAP 7 mmol/L (5-15); CALCIUM 8.1 mg/dL (8.5-10.1); CHLORIDE 103 mmol/L (98-107); CREATININE 1.03 mg/dL (0.7-1.3)
[2019-10-22 18:16] LABS: ALKALINE PHOSPHATASE 101 U/L (45-117); BILIRUBIN,TOTAL 0.4 mg/dL (0.2-1.0); TOTAL PROTEIN 6.2 g/dL (6.4-8.2); TROPONIN I < 0.015 ng/mL (0.000-0.045)
--- NOTE | 2019-10-22 19:04 | NUR ---
pt called to room from lobby
--- NOTE | 2019-10-22 19:07 | NUR ---
SENIOR NET SOFTWARE ENGINEER: PT. AMBULATORY TO ROOM VIA FWW AT THIS TIME. PT. REFUSED W/C TO GET BACK TO ROOM. WITH PT. NO DISTRESS NOTED.
== END 2019-10-22 20:26 | disposition home or self-care (01) ==
LOC: ED 20:20
DX: R42 Dizziness and giddiness (principal); I25.10 Atherosclerotic heart disease of native coronary artery without angina pectoris; I10 Essential (primary) hypertension; I25.2 Old myocardial infarction; K21.9 Gastro-esophageal reflux disease without esophagitis; I44.30 Unspecified atrioventricular block; Z90.49 Acquired absence of other specified parts of digestive tract; Z90.89 Acquired absence of other organs
CPT/HCPCS: 36415; 71045; 80053; 84484; 85025; 93005; 99285

== ENCOUNTER 2019-11-02 09:45 | Observation (INO) | payer MEDICARE ==
[~2019-11-02] VITALS: Ht 177.8 cm; Wt 67.2 kg
--- NOTE | 2019-11-02 10:10 | NUR ---
DR BIGGS SPEAKING W/ PT'S SPOUSE, ACCOMPANIED BY THIS RN. SPOUSE REPORTS PT EXPERIENCED DIFFICULTY BREATHING THIS MORNING, THAT PATIENT ONLY FEELS SAFE WHEN HE'S IN THE EMERGENCY DEPARTMENT. SPOUSE REPORTS PT HAS POLST ON FILE AND IS DNR STATUS.
--- NOTE | 2019-11-02 10:27 | NUR ---
PT'S SPOUSE REQUESTING SEWAGE PLANT OPERATOR CONSULT RE: PATIENT PLACEMENT IN [facility]. ORDER PLACED.
[2019-11-02 10:38] LABS: BASOPHILS # (AUTO) 0.04 x10^3/uL (0-0.1); BASOPHILS % (AUTO) 1 % (0-1); EOSINOPHILS # (AUTO) 0.27 x10^3/uL (0-0.4); EOSINOPHILS % (AUTO) 4 % (1-7); LYMPHOCYTES # (AUTO) 1.08 x10^3/uL (1-3.4); LYMPHOCYTES % (AUTO) 17 % (22-44); MD NO; MEAN CORPUSCULAR HEMOGLOBIN 29.9 pg (27.5-34.5); MEAN CORPUSCULAR HGB CONC 33.1 g/dL (33.2-36.2); MEAN CORPUSCULAR VOLUME 90.3 fL (81-97); MEAN PLATELET VOLUME 7.6 fL (7.4-10.4); MONOCYTES # (AUTO) 0.87 x10^3/uL (0.2-0.8); MONOCYTES % (AUTO) 14 % (2-9); NEUTROPHILS # (AUTO) 4.14 x10^3/uL (1.8-6.8); NEUTROPHILS % (AUTO) 65 % (42-75); PLATELET COUNT 279 x10^3/uL (130-400); RED BLOOD COUNT 3.67 x10^6/uL (4.38-5.82); RED CELL DISTRIBUTION WIDTH 15.6 % (9.4-14.8)
[2019-11-02 10:50] LABS: ALANINE AMINOTRANSFERASE 13 U/L (12-78); ALBUMIN 3.1 g/dL (3.4-5.0); ANION GAP 7 mmol/L (5-15); CALCIUM 8.3 mg/dL (8.5-10.1); CHLORIDE 104 mmol/L (98-107); CREATININE 1.08 mg/dL (0.7-1.3)
[2019-11-02 10:55] LABS: ALKALINE PHOSPHATASE 92 U/L (45-117); BILIRUBIN,TOTAL 0.4 mg/dL (0.2-1.0); TOTAL PROTEIN 6.5 g/dL (6.4-8.2); TROPONIN I < 0.015 ng/mL (0.000-0.045)
[2019-11-02] MEDS ORDERED: ACET325T14 PO (10:56)
[2019-11-02] MEDS ORDERED: HYDR-3237 PO (10:56)
[2019-11-02] MEDS ORDERED: [UNRECOGNIZED DRUG - OTHER] PO (10:56)
--- NOTE | 2019-11-02 11:47 | NUR ---
WIRE WRAPPING MACHINE OPERATOR CONSULT DONE.
[2019-11-02] MEDS ORDERED: METHOCARBAMOL 500 MG TABLET PO PRN (12:00)
[2019-11-02] MEDS ORDERED: HYDROcodone/APAP 5/325 TABLET PO PRN (12:00)
[2019-11-02] MEDS ORDERED: ENOXAPARIN 40 MG/0.4 ML ONE (12:00)
[2019-11-02] MEDS: ENOXAPARIN 40 MG/0.4 ML SQ SCH (12:19)
--- NOTE | 2019-11-02 12:23 | NUR ---
PIV INITIATED. LOVENOX GIVEN PER EMAR
--- NOTE | 2019-11-02 12:30 | NUR ---
PT REPORT TO NINA YBARRA. PT CARE TRANSFERRED.
--- NOTE | 2019-11-02 13:40 | NUR ---
SBAR TELEPHONE HAND-OFF REPORT GIVEN TO NINA YEPEZ ON MEDICAL.
[2019-11-02] MEDS: ACETAMINOPHEN 325 MG TABLET PO SCH ×2 (16:29→20:02)
[2019-11-02 16:59] VITALS: BP 171/73
[2019-11-02 19:07] VITALS: BP 178/76
[2019-11-02] MEDS: GABAPENTIN 100 MG CAPSULE PO PRN (20:02)
[2019-11-02] MEDS: ATORVASTATIN 40 MG TABLET PO SCH (20:02)
[2019-11-02] MEDS: MELATONIN 5 MG TABLET PO PRN (20:02)
[2019-11-02] MEDS: TICAGRELOR 90 MG TABLET PO SCH (20:02)
[2019-11-02] MEDS ORDERED: [UNRECOGNIZED DRUG - OTHER] PO SCH (21:00)
[2019-11-03 00:32] VITALS: BP 145/71
[2019-11-03 06:44] VITALS: BP 155/75
[2019-11-03] MEDS: ACETAMINOPHEN 325 MG TABLET PO SCH ×3 (10:01→21:04)
[2019-11-03] MEDS: PANTOPROZOLE 40MG TABLET PO SCH (10:01)
[2019-11-03] MEDS: TICAGRELOR 90 MG TABLET PO SCH ×2 (10:01→21:04)
[2019-11-03] MEDS: ASPIRIN 81 MG TABLET EC PO SCH (10:01)
[2019-11-03 10:30] LABS: PSA SCREEN 0.15 ng/mL (0.00-4.00)
[2019-11-03] MEDS: ENOXAPARIN 40 MG/0.4 ML SQ SCH (12:14)
[2019-11-03 14:34] VITALS: BP 159/75
[2019-11-03 15:31] LABS: MICROSCOPIC NOT IND
[2019-11-03 15:38] LABS: CULTURE INDICATED? NO
[2019-11-03 20:24] VITALS: BP 166/75
[2019-11-03] MEDS: ATORVASTATIN 40 MG TABLET PO SCH (21:04)
[2019-11-04] MEDS: MELATONIN 5 MG TABLET PO PRN ×2 (00:01→20:16)
[2019-11-04] MEDS: GABAPENTIN 100 MG CAPSULE PO PRN ×2 (00:35→20:16)
[2019-11-04 00:39] VITALS: BP 162/78
[2019-11-04 06:53] VITALS: BP 137/56
[2019-11-04] MEDS: ACETAMINOPHEN 325 MG TABLET PO SCH ×3 (08:17→22:23)
[2019-11-04] MEDS: ASPIRIN 81 MG TABLET EC PO SCH (08:17)
[2019-11-04] MEDS: TICAGRELOR 90 MG TABLET PO SCH ×2 (08:18→20:16)
[2019-11-04] MEDS: PANTOPROZOLE 40MG TABLET PO SCH (08:18)
[2019-11-04] MEDS: ENOXAPARIN 40 MG/0.4 ML SQ SCH (11:45)
[2019-11-04 13:15] VITALS: BP 116/66
[2019-11-04] MEDS: ATORVASTATIN 40 MG TABLET PO SCH (20:16)
[2019-11-04 20:27] VITALS: BP 148/66
[2019-11-04] MEDS ORDERED: MIRTAZAPINE 15 MG TABLET PO SCH (21:00)
[2019-11-05 01:56] VITALS: BP 131/69
[2019-11-05 08:08] VITALS: BP 121/70
[2019-11-05] MEDS: PANTOPROZOLE 40MG TABLET PO SCH (08:22)
[2019-11-05] MEDS: TICAGRELOR 90 MG TABLET PO SCH (08:22)
[2019-11-05] MEDS: ASPIRIN 81 MG TABLET EC PO SCH (08:22)
[2019-11-05] MEDS: ACETAMINOPHEN 325 MG TABLET PO SCH (08:22)
[2019-11-05] MEDS: ENOXAPARIN 40 MG/0.4 ML SQ SCH (12:00)
[2019-11-05 13:48] VITALS: BP 113/62
[2019-11-05] MEDS ORDERED: MIRT-34 PO (15:24)
== END 2019-11-05 17:22 | disposition home or self-care (01) ==
LOC: ED 10:31 → EDIP 11:54 → INTOOBSV 11:54 → 3N 13:46
PROVIDERS: ADMIT Internal Medicine Infectious Disease; ATTEND Internal Medicine Infectious Disease
DX: F41.8 Other specified anxiety disorders (principal); F33.1 Major depressive disorder, recurrent, moderate; K21.9 Gastro-esophageal reflux disease without esophagitis; R06.00 Dyspnea, unspecified; I25.110 Atherosclerotic heart disease of native coronary artery with unstable angina pectoris; I25.2 Old myocardial infarction; Z66 Do not resuscitate; Z96.651 Presence of right artificial knee joint; Z87.01 Personal history of pneumonia (recurrent); Z95.5 Presence of coronary angioplasty implant and graft; Z79.899 Other long term (current) drug therapy; Z79.82 Long term (current) use of aspirin
CPT/HCPCS: 36415; 71045; 80053; 81003; 82306; 82378; 82607; 83880; 84145; 84443; 84484; 85025; 86592; 93005; 96372; 97162; 99285; G0103; G0378; J1650

== ENCOUNTER 2020-04-20 11:44 | Inpatient (IN) | payer MEDICARE ==
[~2020-04-20] VITALS: Ht 177.8 cm; Wt 65.3 kg
[~2020-04-20 11:44] MED LIST changes: +ACET325T14 PO; +HYDR-3237 PO; +MIRT-34 PO; +[UNRECOGNIZED DRUG - OTHER] PO
--- NOTE | 2020-04-20 11:59 | NUR ---
KAMERON-Stella IS AT THE BEDSIDE FOR ASSESSMENT
[2020-04-20] MEDS ORDERED: ONDANSETRON 2MG/ML, 2ML ONE (12:24)
[2020-04-20] MEDS ORDERED: MORPHINE SULFATE 4 MG/ML, 1ML ONE (12:24)
[2020-04-20] MEDS: MORPHINE SULFATE 4 MG/ML, 1ML IVPush PRN ×2 (12:27→12:50)
[2020-04-20] MEDS ORDERED: SODIUM CHLORIDE FLUSH 10ML SYR IVF ONE (12:30)
[2020-04-20] MEDS ORDERED: ONDANSETRON 2MG/ML, 2ML IVPush ONE (12:30)
--- NOTE | 2020-04-20 12:34 | NUR ---
PT RESTING COMFORTABLY ON AN E.R. GURNEY AFTER MULTI OPERATION MACHINE OPERATOR. VS ARE WDL, AND HE HAS TOLERATED THE NARCOTIC DOSE WELL. WE ARE AWAITING PIPE INSULATOR HELPER FOR TRANSPORT TO SCAN. IN THE MEANTIME I WILL CONTINUE TO MONITOR AND TREAT ORDERED, WELL PRN WHILE AWAITING RESULTS FROM DIAGNOSTICS.
[2020-04-20 12:40] LABS: BASOPHILS # (AUTO) 0.05 x10^3/uL (0-0.1); BASOPHILS % (AUTO) 1 % (0-1); EOSINOPHILS # (AUTO) 0.32 x10^3/uL (0-0.4); EOSINOPHILS % (AUTO) 4 % (1-7); LYMPHOCYTES # (AUTO) 1.08 x10^3/uL (1-3.4); LYMPHOCYTES % (AUTO) 14 % (22-44); MD NO; MEAN CORPUSCULAR HEMOGLOBIN 27.6 pg (27.5-34.5); MEAN CORPUSCULAR VOLUME 86.4 fL (81-97); MEAN PLATELET VOLUME 7.6 fL (7.4-10.4); MONOCYTES # (AUTO) 0.77 x10^3/uL (0.2-0.8); MONOCYTES % (AUTO) 10 % (2-9); NEUTROPHILS # (AUTO) 5.41 x10^3/uL (1.8-6.8); NEUTROPHILS % (AUTO) 71 % (42-75); PLATELET COUNT 253 x10^3/uL (130-400); RED BLOOD COUNT 3.93 x10^6/uL (4.38-5.82)
[2020-04-20 12:49] LABS: ALANINE AMINOTRANSFERASE 9 U/L (12-78); ALBUMIN 3.2 g/dL (3.4-5.0); ANION GAP 9 mmol/L (5-15); CALCIUM 8.3 mg/dL (8.5-10.1); CHLORIDE 103 mmol/L (98-107); CREATININE 1.19 mg/dL (0.7-1.3)
[2020-04-20 12:52] LABS: ALKALINE PHOSPHATASE 81 U/L (45-117); BILIRUBIN,TOTAL 0.6 mg/dL (0.2-1.0); TOTAL PROTEIN 6.9 g/dL (6.4-8.2)
[2020-04-20] MEDS ORDERED: OMNIPAQUE 350 MG/ML, 100ML BOTTLE ONE (13:23)
[2020-04-20 14:06] LABS: MICROSCOPIC NOT IND
--- NOTE | 2020-04-20 14:51 | NUR ---
VERO WOOD IS ASSUMING CARE OF THIS PT WHILE I HAVE A LUNCH BREAK. SBAR WAS EXCHANGED AT THE BEDSIDE.
--- NOTE | 2020-04-20 15:32 | NUR ---
TASK RN: PT SITTING UP IN GURNEY, AWAKE/ALERT AND ORIENTED. PT DENIES PAIN/N/V/NEEDS. PT UPDATED TO POC (ADMIT) AND DEMONSTRATES UNDERSTANDING.
[2020-04-20] MEDS ORDERED: DICLOFENAC SODIUM (15:40)
[2020-04-20] MEDS ORDERED: SODIUM CHLORIDE (15:40)
[2020-04-20] MEDS ORDERED: POLYETHYLENE GLYCOL (15:40)
[2020-04-20] MEDS ORDERED: BUSP5TAB2 PO (15:40)
[2020-04-20] MEDS ORDERED: TICA90TA PO (15:40)
--- NOTE | 2020-04-20 15:57 | NUR ---
VERBAL SBAR EXCHANGED Gemma DOWNEY (RN) ON THE FLOOR FOR ADMISSON. WE WILL BEGIN TO PREPARE FOR TRANSPORT AT THIS TIME.
[2020-04-20] MEDS ORDERED: SODIUM CHLORIDE FLUSH 10ML SYR IVF PRN (16:00)
[2020-04-20] MEDS ORDERED: GABAPENTIN 100 MG CAPSULE PO PRN (17:00)
[2020-04-20] MEDS ORDERED: LIDODERM 5% PATCH TD PRN (17:00)
[2020-04-20] MEDS ORDERED: ENOXAPARIN 30 MG/0.3 ML SQ SCH (17:00)
[2020-04-20] MEDS ORDERED: ACETAMINOPHEN 325 MG TABLET PO PRN (17:00)
[2020-04-20] MEDS ORDERED: ACETAMINOPHEN 325 MG TABLET ONE (17:21)
[2020-04-20] MEDS: ACETAMINOPHEN 325 MG TABLET PO SCH ×2 (17:28→19:53)
[2020-04-20 17:31] VITALS: BP 178/73
[2020-04-20] MEDS ORDERED: hydrALAzine 20 MG/ML, 1ML IV PRN (18:00)
[2020-04-20] MEDS: hydrALAzine 20 MG/ML, 1ML IV PRN (18:07)
[2020-04-20 18:32] VITALS: BP 148/65
[2020-04-20 18:38] LABS: MICROSCOPIC NOT IND
[2020-04-20 19:10] VITALS: BP 125/65
[2020-04-20] MEDS: ATORVASTATIN 40 MG TABLET PO SCH (19:52)
[2020-04-20] MEDS: MELATONIN 5 MG TABLET PO PRN (19:52)
[2020-04-20] MEDS: BUSPIRONE 5 MG TABLET PO SCH (19:52)
[2020-04-20] MEDS: TICAGRELOR 90 MG TABLET PO SCH (19:52)
[2020-04-21 03:40] VITALS: BP 137/70
[2020-04-21] MEDS: HYDROcodone/APAP 5/325 TABLET PO PRN ×2 (05:40→18:14)
[2020-04-21 05:51] LABS: BASOPHILS # (AUTO) 0.07 x10^3/uL (0-0.1); BASOPHILS % (AUTO) 1 % (0-1); EOSINOPHILS # (AUTO) 0.44 x10^3/uL (0-0.4); EOSINOPHILS % (AUTO) 7 % (1-7); LYMPHOCYTES # (AUTO) 1.24 x10^3/uL (1-3.4); LYMPHOCYTES % (AUTO) 18 % (22-44); MD NO; MEAN CORPUSCULAR HEMOGLOBIN 27.9 pg (27.5-34.5); MEAN CORPUSCULAR HGB CONC 32.2 g/dL (33.2-36.2); MEAN CORPUSCULAR VOLUME 86.9 fL (81-97); MEAN PLATELET VOLUME 7.5 fL (7.4-10.4); MONOCYTES # (AUTO) 0.85 x10^3/uL (0.2-0.8); MONOCYTES % (AUTO) 13 % (2-9); NEUTROPHILS # (AUTO) 4.18 x10^3/uL (1.8-6.8); NEUTROPHILS % (AUTO) 62 % (42-75); PLATELET COUNT 246 x10^3/uL (130-400); RED BLOOD COUNT 3.79 x10^6/uL (4.38-5.82); RED CELL DISTRIBUTION WIDTH 16.3 % (9.4-14.8)
[2020-04-21 05:55] LABS: ALBUMIN 3.1 g/dL (3.4-5.0); ANION GAP 7 mmol/L (5-15); CALCIUM 8.4 mg/dL (8.5-10.1); CHLORIDE 106 mmol/L (98-107)
[2020-04-21 06:04] LABS: ALANINE AMINOTRANSFERASE 19 U/L (12-78); ALKALINE PHOSPHATASE 98 U/L (45-117); BILIRUBIN,TOTAL 0.8 mg/dL (0.2-1.0); CHOL/HDL RATIO 1.8; CHOLESTEROL, TOTAL 78 mg/dL (140-239); CREATININE 1.01 mg/dL (0.7-1.3); HDL CHOL % 55 % (26-37); HDL CHOLESTEROL (DIRECT) 43 mg/dL (40-60); LDL CHOLESTEROL,CALCULATED 18 mg/dL (54-169); LDL/HDL RATIO 0.4 (0.5-3.0); TOTAL PROTEIN 6.2 g/dL (6.4-8.2); TRIGLYCERIDES 84 mg/dL (50-200); VLDL CHOLESTEROL 17 mg/dL (0-25)
[2020-04-21 07:20] LABS: % IRON SATURATION 13 % (20-55); IRON LEVEL 34 mcg/dL (65-175); TOTAL IRON BINDING CAPACITY 271 mcg/dL (250-450)
[2020-04-21 07:48] VITALS: BP 138/56
[2020-04-21] MEDS: TICAGRELOR 90 MG TABLET PO SCH ×2 (09:08→19:51)
[2020-04-21] MEDS: ACETAMINOPHEN 325 MG TABLET PO SCH ×3 (09:08→19:51)
[2020-04-21] MEDS: BUSPIRONE 5 MG TABLET PO SCH ×2 (09:08→19:51)
[2020-04-21] MEDS: SODIUM CHLORIDE 1 GM TABLET PO SCH (09:08)
[2020-04-21] MEDS: ASPIRIN 81 MG TABLET EC PO SCH (09:08)
[2020-04-21] MEDS: PANTOPRAZOLE 40MG TABLET PO SCH (09:08)
[2020-04-21] MEDS ORDERED: MOVIPREP POWDER 1 PREP KIT PO ONE (13:00)
[2020-04-21] MEDS ORDERED: LORazepam 2 MG/ML, 1ML IVPush PRN (13:30)
[2020-04-21 14:40] VITALS: BP 183/73
[2020-04-21] MEDS ORDERED: NYSTATIN 500,000 UNITS/5 ML UDC PO SCH (16:00)
[2020-04-21 19:13] VITALS: BP 193/71
[2020-04-21] MEDS: ATORVASTATIN 40 MG TABLET PO SCH (19:51)
[2020-04-21] MEDS ORDERED: HALOPERIDOL 5 MG TABLET PO ONE (23:00)
[2020-04-21] MEDS ORDERED: HALOPERIDOL 2 MG TABLET PO ONE (23:00)
[2020-04-22 00:31] VITALS: BP 176/73
[2020-04-22] MEDS: hydrALAzine 20 MG/ML, 1ML IV PRN ×2 (00:43→19:38)
[2020-04-22 01:54] VITALS: BP 159/69
[2020-04-22 05:52] LABS: BASOPHILS # (AUTO) 0.07 x10^3/uL (0-0.1); BASOPHILS % (AUTO) 1 % (0-1); EOSINOPHILS # (AUTO) 0.36 x10^3/uL (0-0.4); EOSINOPHILS % (AUTO) 5 % (1-7); LYMPHOCYTES # (AUTO) 1.32 x10^3/uL (1-3.4); LYMPHOCYTES % (AUTO) 17 % (22-44); MD NO; MEAN CORPUSCULAR HEMOGLOBIN 27.7 pg (27.5-34.5); MEAN CORPUSCULAR VOLUME 86.4 fL (81-97); MONOCYTES % (AUTO) 13 % (2-9); NEUTROPHILS # (AUTO) 4.96 x10^3/uL (1.8-6.8); NEUTROPHILS % (AUTO) 64 % (42-75); PLATELET COUNT 243 x10^3/uL (130-400); RED CELL DISTRIBUTION WIDTH 15.8 % (9.4-14.8)
[2020-04-22 06:01] LABS: CHLORIDE 106 mmol/L (98-107)
[2020-04-22 06:05] LABS: ANION GAP 11 mmol/L (5-15); CALCIUM 8.5 mg/dL (8.5-10.1); CREATININE 1.06 mg/dL (0.7-1.3)
[2020-04-22] MEDS ORDERED: POTASSIUM CHLORIDE 40 MEQ in SODIUM CHLORIDE 0.9% 500 ML IV ONE (07:00)
[2020-04-22] MEDS ORDERED: CHLORHEXIDINE 15 ML UDC MM ONE (07:30)
[2020-04-22] MEDS ORDERED: PROPOFOL 50 ML ONE (07:59)
[2020-04-22 10:36] VITALS: BP 149/66
[2020-04-22 10:39] VITALS: BP 149/66
[2020-04-22] MEDS: ASPIRIN 81 MG TABLET EC PO SCH (11:36)
[2020-04-22] MEDS: BUSPIRONE 5 MG TABLET PO SCH ×2 (11:36→19:38)
[2020-04-22] MEDS: TICAGRELOR 90 MG TABLET PO SCH ×2 (11:36→19:38)
[2020-04-22] MEDS: PANTOPRAZOLE 40MG TABLET PO SCH (11:37)
[2020-04-22] MEDS: SODIUM CHLORIDE 1 GM TABLET PO SCH (11:37)
[2020-04-22] MEDS: ACETAMINOPHEN 325 MG TABLET PO SCH ×3 (11:37→19:39)
[2020-04-22] MEDS: HYDROcodone/APAP 5/325 TABLET PO PRN (11:38)
[2020-04-22] MEDS ORDERED: POTASSIUM CHLORIDE 20 MEQ TAB.ER.PRT PO ONE (12:00)
[2020-04-22 12:31] VITALS: BP 169/87
[2020-04-22] MEDS: K-PHOS NEUTRAL 250MG TAB PO SCH ×2 (15:19→19:38)
[2020-04-22 19:04] VITALS: BP 184/67
[2020-04-22] MEDS: MELATONIN 5 MG TABLET PO PRN (19:38)
[2020-04-22] MEDS: ATORVASTATIN 40 MG TABLET PO SCH (19:38)
[2020-04-23 01:37] VITALS: BP 153/65
[2020-04-23 06:07] LABS: ANION GAP 9 mmol/L (5-15); CALCIUM 8.2 mg/dL (8.5-10.1); CHLORIDE 106 mmol/L (98-107)
[2020-04-23 06:09] LABS: CREATININE 1.11 mg/dL (0.7-1.3)
[2020-04-23 08:41] VITALS: BP 150/76
[2020-04-23] MEDS ORDERED: POTASSIUM CHLORIDE 20 MEQ TAB.ER.PRT PO ONE (09:00)
[2020-04-23] MEDS: ACETAMINOPHEN 325 MG TABLET PO SCH ×3 (09:21→20:26)
[2020-04-23] MEDS: PANTOPRAZOLE 40MG TABLET PO SCH (09:22)
[2020-04-23] MEDS: SODIUM CHLORIDE 1 GM TABLET PO SCH (09:22)
[2020-04-23] MEDS: BUSPIRONE 5 MG TABLET PO SCH ×2 (09:22→20:26)
[2020-04-23] MEDS: TICAGRELOR 90 MG TABLET PO SCH ×2 (09:22→20:27)
[2020-04-23] MEDS: ASPIRIN 81 MG TABLET EC PO SCH (09:22)
[2020-04-23] MEDS ORDERED: OMNIPAQUE 350 MG/ML, 100ML BOTTLE ONE (10:46)
[2020-04-23 13:00] VITALS: BP 131/72
[2020-04-23] MEDS: HYDROcodone/APAP 5/325 TABLET PO PRN ×2 (15:22→22:07)
[2020-04-23 19:38] VITALS: BP 146/81
[2020-04-23] MEDS: ATORVASTATIN 40 MG TABLET PO SCH (20:27)
[2020-04-23] MEDS: MELATONIN 5 MG TABLET PO PRN (20:32)
[2020-04-24 01:42] VITALS: BP 154/77
[2020-04-24 07:04] VITALS: BP 125/71
[2020-04-24] MEDS: ACETAMINOPHEN 325 MG TABLET PO SCH ×2 (08:46→16:20)
[2020-04-24] MEDS: TICAGRELOR 90 MG TABLET PO SCH (08:46)
[2020-04-24] MEDS: SODIUM CHLORIDE 1 GM TABLET PO SCH (08:46)
[2020-04-24] MEDS: BUSPIRONE 5 MG TABLET PO SCH (08:46)
[2020-04-24] MEDS: ASPIRIN 81 MG TABLET EC PO SCH (08:46)
[2020-04-24] MEDS: PANTOPRAZOLE 40MG TABLET PO SCH (08:46)
[2020-04-24] MEDS ORDERED: OMNIPAQUE 350 MG/ML, 75ML BOTTLE ONE (10:12)
[2020-04-24 14:07] VITALS: BP 153/55
[2020-04-24] MEDS: HYDROcodone/APAP 5/325 TABLET PO PRN (16:20)
== END 2020-04-24 17:08 | disposition home or self-care (01) | DRG 392 ==
LOC: ED 12:08 → EDIP 15:31 → 3N 17:18
PROVIDERS: ADMIT Internal Medicine; ATTEND Internal Medicine
PROC: 0DB98ZX Excision of Duodenum, Via Natural or Artificial Opening Endoscopic, Diagnostic (ICD-10-PCS; 2020-04-22)
PROC: 0DB38ZX Excision of Lower Esophagus, Via Natural or Artificial Opening Endoscopic, Diagnostic (ICD-10-PCS; 2020-04-22)
PROC: 0DB78ZX Excision of Stomach, Pylorus, Via Natural or Artificial Opening Endoscopic, Diagnostic (ICD-10-PCS; 2020-04-22)
PROC: 0DJD8ZZ Inspection of Lower Intestinal Tract, Via Natural or Artificial Opening Endoscopic (ICD-10-PCS; principal; 2020-04-22 08:00)
DX: K22.2 Esophageal obstruction (principal); E87.1 Hypo-osmolality and hyponatremia; K29.70 Gastritis, unspecified, without bleeding; K29.80 Duodenitis without bleeding; R62.7 Adult failure to thrive; F03.90 Unspecified dementia, unspecified severity, without behavioral disturbance, psychotic disturbance, mood disturbance, and anxiety; K64.8 Other hemorrhoids; K21.9 Gastro-esophageal reflux disease without esophagitis; K44.9 Diaphragmatic hernia without obstruction or gangrene; E87.6 Hypokalemia; D64.9 Anemia, unspecified; E78.00 Pure hypercholesterolemia, unspecified; E78.5 Hyperlipidemia, unspecified; E83.39 Other disorders of phosphorus metabolism; F41.1 Generalized anxiety disorder; G89.29 Other chronic pain; I10 Essential (primary) hypertension; J47.9 Bronchiectasis, uncomplicated; I25.10 Atherosclerotic heart disease of native coronary artery without angina pectoris; I25.2 Old myocardial infarction; Z66 Do not resuscitate; Z95.5 Presence of coronary angioplasty implant and graft; Z96.651 Presence of right artificial knee joint; M25.561 Pain in right knee; Z90.49 Acquired absence of other specified parts of digestive tract; Z88.8 Allergy status to other drugs, medicaments and biological substances; Z79.82 Long term (current) use of aspirin; R91.8 Other nonspecific abnormal finding of lung field; Z20.828 Contact with and (suspected) exposure to other viral communicable diseases
CPT/HCPCS: 36415; 71260; 74177; 74178; 80048; 80053; 80061; 81003; 82607; 82728; 83540; 83550; 83690; 83735; 84100; 84443; 85025; 87635; 88305; 93005; 96374; 96375; 99285; G0378; J2405; J2704; Q9967; J0360; J2270

== ENCOUNTER 2020-05-03 15:48 | Emergency (ER) | payer MEDICARE ==
[~2020-05-03] VITALS: Ht 177.8 cm; Wt 66.3 kg
[~2020-05-03 15:48] MED LIST changes: +BUSP5TAB2 PO; +DICLOFENAC SODIUM; +POLYETHYLENE GLYCOL; +SODIUM CHLORIDE
--- NOTE | 2020-05-03 16:11 | NUR ---
PT BROUGHT BACK FROM TRIAGE WITH CHIEF COMPLAINT OF RIGHT KNEE PAIN & LEFT LOWER ABD PAIN. HOWEVER STATES BOTH ARE CHRONIC ISSUES. PTS REPORTS THE PATIENT FELL IN THE BATHROOM 2 WEEKS AGO, WITHOUT MEDICAL EVALUAITON. PT IS ON BLOOD THINERS FOR CARDIAC STENT.
--- NOTE | 2020-05-03 17:00 | NUR ---
GABRIELLE ROLDAN AT BEDSIDE FOR EVALUATION
[2020-05-03] MEDS ORDERED: HYDROcodone/APAP 5/325 TABLET ONE (17:13)
[2020-05-03 17:27] LABS: MICROSCOPIC NOT IND
[2020-05-03] MEDS ORDERED: HYDROcodone/APAP 5/325 TABLET PO ONE (17:30)
[2020-05-03 17:37] LABS: BASOPHILS # (AUTO) 0.03 x10^3/uL (0-0.1); BASOPHILS % (AUTO) 1 % (0-1); EOSINOPHILS # (AUTO) 0.25 x10^3/uL (0-0.4); EOSINOPHILS % (AUTO) 4 % (1-7); LYMPHOCYTES # (AUTO) 1.16 x10^3/uL (1-3.4); LYMPHOCYTES % (AUTO) 17 % (22-44); MD NO; MEAN CORPUSCULAR HEMOGLOBIN 28.3 pg (27.5-34.5); MEAN CORPUSCULAR HGB CONC 32.9 g/dL (33.2-36.2); MEAN PLATELET VOLUME 7.6 fL (7.4-10.4); MONOCYTES # (AUTO) 1.02 x10^3/uL (0.2-0.8); MONOCYTES % (AUTO) 15 % (2-9); NEUTROPHILS # (AUTO) 4.38 x10^3/uL (1.8-6.8); NEUTROPHILS % (AUTO) 64 % (42-75); PLATELET COUNT 264 x10^3/uL (130-400); RED BLOOD COUNT 3.71 x10^6/uL (4.38-5.82); RED CELL DISTRIBUTION WIDTH 16.5 % (9.4-14.8)
[2020-05-03 17:41] LABS: ALANINE AMINOTRANSFERASE 10 U/L (12-78); ALBUMIN 3.1 g/dL (3.4-5.0); ANION GAP 6 mmol/L (5-15); CALCIUM 8.4 mg/dL (8.5-10.1); CHLORIDE 102 mmol/L (98-107); CREATININE 1.13 mg/dL (0.7-1.3)
[2020-05-03 17:44] LABS: ALKALINE PHOSPHATASE 84 U/L (45-117); BILIRUBIN,TOTAL 0.4 mg/dL (0.2-1.0); TOTAL PROTEIN 6.6 g/dL (6.4-8.2)
--- NOTE | 2020-05-03 18:03 | NUR ---
GABRIELLE ROLDAN AT BEDSIDE FOR EVALUATION
--- NOTE | 2020-05-03 18:57 | NUR ---
REPORT RECIEVED FROM NINA BURGER. ALL SAFETY MEASURES IN PLACE.
[2020-05-03 19:43] VITALS: BP 174/68
--- NOTE | 2020-05-03 19:48 | NUR ---
CALLED PATIENT'S TO INFORM HER HE IS GOING TO BE DISCHARGED. STATES SHE IS ON HER WAY BACK
--- NOTE | 2020-05-03 20:08 | NUR ---
PATIENT'S IS BACK IN ROOM, PATIENT DRESSED AND READY TO GO. AWAITNG D/C PAPERWORK
== END 2020-05-03 20:53 | disposition home or self-care (01) ==
LOC: ED 16:45
DX: M25.561 Pain in right knee (principal); G89.29 Other chronic pain; R10.32 Left lower quadrant pain; I10 Essential (primary) hypertension; I25.10 Atherosclerotic heart disease of native coronary artery without angina pectoris; K21.9 Gastro-esophageal reflux disease without esophagitis; E78.5 Hyperlipidemia, unspecified; I25.2 Old myocardial infarction; Z90.89 Acquired absence of other organs; Z90.49 Acquired absence of other specified parts of digestive tract; Z98.61 Coronary angioplasty status
CPT/HCPCS: 36415; 80053; 81003; 85025; 99284

== ENCOUNTER 2020-05-15 14:58 | Emergency (ER) | payer MEDICARE ==
[~2020-05-15] VITALS: Ht 154.9 cm; Wt 64.3 kg
[~2020-05-15 14:58] MED LIST changes: -PANT40TA5 PO; +PANT40TA6 PO
[2020-05-15 15:54] LABS: BASOPHILS # (AUTO) 0.06 x10^3/uL (0-0.1); BASOPHILS % (AUTO) 1 % (0-1); EOSINOPHILS # (AUTO) 0.16 x10^3/uL (0-0.4); EOSINOPHILS % (AUTO) 2 % (1-7); LYMPHOCYTES # (AUTO) 0.83 x10^3/uL (1-3.4); LYMPHOCYTES % (AUTO) 10 % (22-44); MD NO; MEAN CORPUSCULAR HEMOGLOBIN 27.6 pg (27.5-34.5); MEAN CORPUSCULAR HGB CONC 31.7 g/dL (33.2-36.2); MEAN PLATELET VOLUME 7.6 fL (7.4-10.4); MONOCYTES # (AUTO) 1.03 x10^3/uL (0.2-0.8); MONOCYTES % (AUTO) 13 % (2-9); NEUTROPHILS # (AUTO) 5.87 x10^3/uL (1.8-6.8); NEUTROPHILS % (AUTO) 74 % (42-75); PLATELET COUNT 260 x10^3/uL (130-400); RED BLOOD COUNT 4.13 x10^6/uL (4.38-5.82); RED CELL DISTRIBUTION WIDTH 16.2 % (9.4-14.8)
[2020-05-15 15:55] LABS: ALANINE AMINOTRANSFERASE 8 U/L (12-78); ANION GAP 7 mmol/L (5-15); CALCIUM 8.4 mg/dL (8.5-10.1); CHLORIDE 104 mmol/L (98-107); CREATININE 1.25 mg/dL (0.7-1.3)
--- NOTE | 2020-05-15 15:55 | NUR ---
PER PT'S , PT WITH CHRONIC ABD PAIN, SEEN AT [place] FOR SAME. PT STATES LLQ PAIN AND WANTS A "ABDOMINAL MUSCLE STEROID SHOT." PT PLACED ON MONITORS, VSS. AWAITING ERMD ASSESMENT.
[2020-05-15 15:57] LABS: ALKALINE PHOSPHATASE 83 U/L (45-117); BILIRUBIN,TOTAL 0.5 mg/dL (0.2-1.0); TOTAL PROTEIN 6.8 g/dL (6.4-8.2)
--- NOTE | 2020-05-15 16:01 | NUR ---
PT'S NAME TREMAYNE [phone]
--- NOTE | 2020-05-15 17:31 | NUR ---
PT RESTING IN BED, GIVEN FOOD PER REQUEST, ERMD STATES OK TO FEED PT. PT ASKING "WHEN AM I GOING HOME?" PT STATES HE DOES NOT WANT ADMIT, STATES "WHEN DO I GET MY PILL SO I CAN GET OUT OF HERE?" ERMD AWARE. DR. TRACY AT BEDSIDE FOR REASSESSMENT.
--- NOTE | 2020-05-15 17:47 | NUR ---
CALLED PT'S , AWARE PT TO BE ER D/C. WILL COME HAND BINDERY ASSEMBLY WORKER PT.
--- NOTE | 2020-05-15 18:20 | NUR ---
PT D/C'D, AT SIDE. PT'S VERBALIZED UNDERSTANDING OF D/C INSTRUCTIONS.
[2020-05-15] MEDS ORDERED: ACETAMINOPHEN 325 MG TABLET PO ONE (18:30)
[2020-05-15 18:34] VITALS: BP 129/78
== END 2020-05-15 18:37 | disposition home or self-care (01) ==
LOC: ED 16:11
DX: G89.29 Other chronic pain (principal); R10.32 Left lower quadrant pain; I10 Essential (primary) hypertension; K21.9 Gastro-esophageal reflux disease without esophagitis; I25.2 Old myocardial infarction; Z90.89 Acquired absence of other organs; Z90.49 Acquired absence of other specified parts of digestive tract
CPT/HCPCS: 36415; 80053; 85025; 99283

== ENCOUNTER 2020-06-07 10:46 | Emergency (ER) | payer MEDICARE ==
[~2020-06-07] VITALS: Ht 177.8 cm; Wt 65.5 kg
[~2020-06-07 10:46] MED LIST changes: +HYDR-3240 PO
--- NOTE | 2020-06-07 11:11 | NUR ---
first contact with pt. pt c/o groin and abd pain for a long time per pt's . hx of dementia. resps even and unlabored. bp/spo2 monitors in place. call light within reach. pa at bedside evaluating at this time.
[2020-06-07 11:31] LABS: BASOPHILS # (AUTO) 0.02 x10^3/uL (0-0.1); BASOPHILS % (AUTO) 0 % (0-1); EOSINOPHILS # (AUTO) 0.32 x10^3/uL (0-0.4); EOSINOPHILS % (AUTO) 5 % (1-7); LYMPHOCYTES # (AUTO) 1.08 x10^3/uL (1-3.4); LYMPHOCYTES % (AUTO) 15 % (22-44); MD NO; MEAN CORPUSCULAR HEMOGLOBIN 27.2 pg (27.5-34.5); MEAN CORPUSCULAR HGB CONC 31.4 g/dL (33.2-36.2); MEAN PLATELET VOLUME 7.2 fL (7.4-10.4); MONOCYTES # (AUTO) 1.07 x10^3/uL (0.2-0.8); MONOCYTES % (AUTO) 15 % (2-9); NEUTROPHILS # (AUTO) 4.57 x10^3/uL (1.8-6.8); NEUTROPHILS % (AUTO) 65 % (42-75); PLATELET COUNT 316 x10^3/uL (130-400); RED CELL DISTRIBUTION WIDTH 16.6 % (9.4-14.8)
--- NOTE | 2020-06-07 11:35 | NUR ---
PT STATED"LET ME ." HX OF DEMENTIA AND UNABLE TO ASSESS SI. PA AND ENTERPRISE DATA ARCHITECT NOTIFIED. PT STATED"HE ALWAYS SAYS THAT BUT I DON'T THINK HE WANNA KILL HIM SELF. HE HAS DEMENTIA AND OLD"
[2020-06-07 11:41] LABS: ALANINE AMINOTRANSFERASE 12 U/L (12-78); ALBUMIN 2.7 g/dL (3.4-5.0); ANION GAP 7 mmol/L (5-15); CHLORIDE 105 mmol/L (98-107); CREATININE 1.18 mg/dL (0.7-1.3)
[2020-06-07 11:43] LABS: ALKALINE PHOSPHATASE 95 U/L (45-117); BILIRUBIN,TOTAL 0.4 mg/dL (0.2-1.0); TOTAL PROTEIN 6.5 g/dL (6.4-8.2)
[2020-06-07 12:43] LABS: MICROSCOPIC AUTO
[2020-06-07 12:51] VITALS: BP 158/62
--- NOTE | 2020-06-07 12:56 | NUR ---
PT SLEEPING IN [place]. RESPS EVEN AND UNLABORED. CALL LIGHT WITHIN REACH. RAILS UP X 2.
--- NOTE | 2020-06-07 13:20 | NUR ---
pt using urinal at this time.
--- NOTE | 2020-06-07 13:37 | NUR ---
water provided at this time per request.
--- NOTE | 2020-06-07 14:35 | NUR ---
Patient given discharge instructions and they have confirmed that they understand the instructions.
== END 2020-06-07 14:36 | disposition home or self-care (01) ==
LOC: ED 11:13
DX: R10.84 Generalized abdominal pain (principal); I10 Essential (primary) hypertension; Z87.09 Personal history of other diseases of the respiratory system; Z86.59 Personal history of other mental and behavioral disorders; K21.9 Gastro-esophageal reflux disease without esophagitis; E78.00 Pure hypercholesterolemia, unspecified
CPT/HCPCS: 36415; 74176; 80053; 81001; 85025; 99284

== ENCOUNTER 2020-06-10 10:34 | Emergency (ER) | payer MEDICARE ==
[2020-06-10] MEDS ORDERED: SODIUM CHLORIDE FLUSH 10ML SYR IVF ONE (11:00)
[2020-06-10] MEDS ORDERED: LORazepam 2 MG/ML, 1ML IVPush ONE (11:00)
[2020-06-10] MEDS ORDERED: PLEASE ENTER HEIGHT AND WEIGHT MC SCH (11:00)
[2020-06-10] MEDS ORDERED: LORazepam 2 MG/ML, 1ML ONE (11:04)
[2020-06-10 11:33] LABS: BASOPHILS % (AUTO) 1 % (0-1); EOSINOPHILS % (AUTO) 2 % (1-7); LYMPHOCYTES % (AUTO) 14 % (22-44); MEAN CORPUSCULAR HGB CONC 32.3 g/dL (33.2-36.2); MEAN PLATELET VOLUME 7.3 fL (7.4-10.4); MONOCYTES % (AUTO) 16 % (2-9); NEUTROPHILS % (AUTO) 67 % (42-75); PLATELET COUNT 310 x10^3/uL (130-400); RED BLOOD COUNT 4.15 x10^6/uL (4.38-5.82); RED CELL DISTRIBUTION WIDTH 16.3 % (9.4-14.8)
[2020-06-10 11:44] LABS: ALANINE AMINOTRANSFERASE 8 U/L (12-78); ALBUMIN 2.9 g/dL (3.4-5.0); ANION GAP 9 mmol/L (5-15); CHLORIDE 103 mmol/L (98-107); CREATININE 1.09 mg/dL (0.7-1.3)
[2020-06-10 11:46] LABS: ALKALINE PHOSPHATASE 105 U/L (45-117); BILIRUBIN,TOTAL 0.5 mg/dL (0.2-1.0)
[2020-06-10 11:59] LABS: MD NO
[2020-06-10] MEDS ORDERED: ENALAPRILAT 1.25 MG/ML, 2ML IV ONE (12:00)
--- NOTE | 2020-06-10 12:00 | NUR ---
PT VOIDED ABOUT 100ML WHILE PREPARING FOR STRAIGHT CATH. THEN STRAIGHT CATH DONE AND SAMPLE WALKED TO LAB. REPOSITIONED PT IN [facility]. [email or web address] MATTRESS IN PLACE. 'WD POC WITH PT. PT WITH EYES OPEN BUT NOT CONVERSING AT THIS TIME. Addendum: 06/10/20 at 1308 by HBENSON 1230 - PT VOIDED ABOUT 100ML WHILE PREPARING FOR STRAIGHT CATH. THEN STRAIGHT CATH DONE AND SAMPLE WALKED TO LAB. REPOSITIONED PT IN [facility]. [email or web address] MATTRESS IN PLACE. 'WD POC WITH PT. PT WITH EYES OPEN BUT NOT CONVERSING AT THIS TIME.
--- NOTE | 2020-06-10 12:04 | NUR ---
pt sleeping on hospital bed, resps even and unlabored. report given to NINA Elliott who is assuming care.
[2020-06-10] MEDS ORDERED: ENALAPRILAT 1.25 MG/ML, 1ML ONE (12:12)
[2020-06-10 13:36] LABS: MICROSCOPIC AUTO
--- NOTE | 2020-06-10 13:46 | NUR ---
PT VOIDED AGAIN ABOUT 100ML IN URINAL. HAS BEEN TRYING TO GET UP OUT OF HOSPITAL BED FREQUENTLY. STAFF ASSISTS PT BACK INTO BED AND RE-ORIENTS PT. PT ASKS, "WHY CAN'T I WALK AROUND? I NEED TO FEED MY PETS." PT CURRENTLY SITTING UP IN BED EATING LUNCH TRAY WITHOUT DIFFICULTY.
--- NOTE | 2020-06-10 14:45 | NUR ---
BEDSIDE REPORT AND D/C PAPERWORK PROVIDED TO MIKKI. PT TRANSFERRED TO [facility] WITH ALL BELONGINGS.
[2020-06-10 14:47] VITALS: BP 176/159
== END 2020-06-10 14:48 | disposition short-term general hospital (02) ==
LOC: ED 12:40
DX: R10.84 Generalized abdominal pain (principal); I10 Essential (primary) hypertension; F03.90 Unspecified dementia, unspecified severity, without behavioral disturbance, psychotic disturbance, mood disturbance, and anxiety; R91.8 Other nonspecific abnormal finding of lung field; I49.3 Ventricular premature depolarization; I25.10 Atherosclerotic heart disease of native coronary artery without angina pectoris; K21.9 Gastro-esophageal reflux disease without esophagitis; E78.5 Hyperlipidemia, unspecified; E78.00 Pure hypercholesterolemia, unspecified; I25.2 Old myocardial infarction; Z90.89 Acquired absence of other organs; Z90.49 Acquired absence of other specified parts of digestive tract; Z98.61 Coronary angioplasty status
CPT/HCPCS: 36415; 71045; 80053; 81001; 83605; 83690; 85025; 87077; 87086; 87186; 93005; 96374; 96375; 99285; J2060

== ENCOUNTER 2020-09-23 09:06 | Emergency (ER) | payer MEDICARE, OTHER ==
[~2020-09-23] VITALS: Ht 170.2 cm; Wt 54.5 kg
[~2020-09-23 09:06] MED LIST changes: +HYDR-1067 PO; -HYDR-3240 PO; -MECL12.581 PO; +MECL12.582 PO
--- NOTE | 2020-09-23 09:06 | NUR ---
RAFAELA FROM [facility] C/O HYPOXIC (60%RA) WITH ALOC SINCE THIS AM DURING BREAKFAST PER [facility] CAREGIVER (KRISTI) NO TREATMENT (IMAGING, LABS) D/T DNR STATUS/POLST; 6L/NC, BG 164 & PIV WITH [employer]F INITIATED [employer] DRIVER BY EMS; PT OPENS EYES TO PHYSICAL STIMULI WITH MOANING- DOES NOT ANSWER QUESTIONS, CHANGED INTO GOWN, MONITORS IN PLACE, CALL LIGHT WITHIN REACH.
--- NOTE | 2020-09-23 09:55 | NUR ---
ARRIVED AT BS & VERBLAIZED UNDERSTANDING OF & AGREED TO POC.
--- NOTE | 2020-09-23 09:59 | NUR ---
TP RN NOTE: pt's residence ([facility]) called twice without answer, voicemail full, unable to reach to facilatate acceptance for transport back at this time.
--- NOTE | 2020-09-23 10:00 | NUR ---
Note joannaana rosa in EDM - 09/23/20 at 1119 by AG PT MOANING ON GURNEY WITH EYES CLOSED C/O GEN PAIN- ONLY DISCERNABLE ANSWER OBTAINED FROM PT WAS "YES" WHEN ASKED IF HE HAD PAIN, PT MEDICATED PER EMAR, VSS & SUPPL O2 IN PLACE, COMFORT MEASURES PROVIDED, RETURNED TO BS, CALL LIGHT WITHIN REACH.
--- NOTE | 2020-09-23 10:01 | NUR ---
ERP AT BS UPDATING PT (TREMAYNE) ON POC- PT AGREEABLE WITH PLAN, PT RESTING CALMLY ON GURNEY WITH EYES CLOSED, NO CHANGE IN PT LOC, NAD WITH VSS & SUPPL O2 IN PLACE, COMFORT MEASURES PROVIDED, AT BS, CALL LIGHT WITHIN REACH.
--- NOTE | 2020-09-23 10:16 | NUR ---
alternate phone number to [facility] provided by pt's family, no answer with 3rd call, no voicemail available to leave message.
[2020-09-23] MEDS ORDERED: MORPHINE SULFATE 4 MG/ML, 1ML ONE (10:54)
[2020-09-23] MEDS ORDERED: MORPHINE SULFATE 4 MG/ML, 1ML IVPush ONE (11:00)
--- NOTE | 2020-09-23 11:00 | NUR ---
PT MOANING ON GURNEY WITH EYES CLOSED C/O GEN PAIN- ONLY DISCERNABLE ANSWER OBTAINED FROM PT WAS "YES" WHEN ASKED IF HE HAD PAIN, PT MEDICATED PER EMAR, VSS & SUPPL O2 IN PLACE, COMFORT MEASURES PROVIDED, RETURNED TO BS, CALL LIGHT WITHIN REACH.
[2020-09-23 11:44] VITALS: BP 143/63
--- NOTE | 2020-09-23 11:50 | NUR ---
TP RN NOTE: [facility] STAFF REACHED, STAFF MEMBER SYDNEE AWARE OF IMMINENT TRANSPORT BACK VIA [facility]. RECEIVING MD IS RAFAEL. PT'S RTEMAYNE AWARE OF TRANSPORT, GIVES VERBAL CONSENT. CONSENT AND TRANSFER FORMS COMPLETE, [facility] NOTIFIED OF TRANSPORT REQUEST. FORM FAXED, RECEIPT OF TRANSPORT REQUEST RECEIVED. [facility] TRANSPORT TO ARRIVE AT 1215 THIS PM. PRIMARY RN AWARE.
== END 2020-09-23 12:40 | disposition home or self-care (01) ==
LOC: ED 09:22
DX: G30.1 Alzheimer's disease with late onset (principal); F02.80 Dementia in other diseases classified elsewhere, unspecified severity, without behavioral disturbance, psychotic disturbance, mood disturbance, and anxiety; R40.1 Stupor; R09.02 Hypoxemia; R50.9 Fever, unspecified; I10 Essential (primary) hypertension; K21.9 Gastro-esophageal reflux disease without esophagitis; I25.2 Old myocardial infarction; E78.00 Pure hypercholesterolemia, unspecified; E78.5 Hyperlipidemia, unspecified; E87.1 Hypo-osmolality and hyponatremia; I25.10 Atherosclerotic heart disease of native coronary artery without angina pectoris; I44.0 Atrioventricular block, first degree; J18.0 Bronchopneumonia, unspecified organism; Z90.89 Acquired absence of other organs; Z90.49 Acquired absence of other specified parts of digestive tract
CPT/HCPCS: 93005; 96374; 99283; J2270